=== PATIENT | male | born 1985 | race Caucasian/White ===

== ENCOUNTER 2016-09-24 11:50 | Emergency (ER) | payer OTHER, BC ==
[~2016-09-24] VITALS: Ht 182.9 cm; Wt 99.6 kg
[~2016-09-24 11:50] MED LIST: SERT-234 PO
[2016-09-24 12:03] VITALS: TEMP 37.7; Ht 182.9 cm; Wt 99.6 kg
[2016-09-24 12:27] LABS: BASO % 0.2 %; BASO ABS # 0.03 K/uL (0-0.2); COMPLETE YES; EOS % 0.1 %; HEMATOCRIT 45.2 % (42-52); IG% 0.3 %; LYMPH % 11.1 %; LYMPH ABS # 1.63 K/uL (1.2-3.4); MEAN CELL VOLUME 88.1 fL (80-100); MEAN CORPUSCULAR HEMOGLOBIN 32.4 pg (25-34); MEAN CORPUSCULAR HGB CONC 36.7 g/dl (32-36); MEAN PLATELET VOLUME 10.6 fL (7.4-10.4); MONO % 5.7 %; NEUT % 82.6 %; PLATELET COUNT 187 K/uL (130-400); RED BLOOD COUNT 5.13 M/uL (4.7-6.1); WHITE BLOOD COUNT 14.68 K/uL (4.8-10.8)
--- NOTE | 2016-09-24 12:32 | DIAGNOSTIC IMAGING REPORT ---
CHEST ONE VIEW PORTABLE CLINICAL HISTORY: Fever, sepsis. Shortness of breath. COMPARISON STUDY: Chest radiograph June 08, 2014. FINDINGS: Lung volumes are normal. There is no pneumothorax or pleural effusion. Cardiac size is normal. Mediastinal contours are normal. There is no evidence of pulmonary edema. IMPRESSION: No acute cardiopulmonary findings. Electronically signed by: Raul Khan M.D. 09/24/2016 12:30 PM Dictated Date/Time: 09/24/2016 12:29 PM
[2016-09-24 12:45] LABS: ALT/SGPT 53 U/L (12-78); AST/SGOT 24 U/L (15-37); BLOOD UREA NITROGEN 16 mg/dl (7-18); BUN/CREATININE RATIO 14.5 (10-20); CALCIUM 9.2 mg/dl (8.5-10.1); CARBON DIOXIDE 28 mmol/L (21-32); CHLORIDE 105 mmol/L (98-107); GLUCOSE 94 mg/dl (70-99); POTASSIUM 3.9 mmol/L (3.5-5.1); SODIUM 139 mmol/L (136-145)
[2016-09-24 12:50] LABS: ALKALINE PHOSPHATASE 74 U/L (45-117)
[2016-09-24 13:22] VITALS: O2SAT 94
[2016-09-24] MEDS ORDERED: ZNTT/150 PO (13:53)
--- NOTE | 2016-09-24 13:54 | EMERGENCY ROOM VISIT NOTE ---
History Report prepared by Jocelyn: Lazara Jacobo Under the Supervision of: Dr. Romain Rossi D.O. First contact with patient: 12:07 Chief Complaint: CHEST PAIN Stated Complaint: CP, SOB, DIZZY Nursing Triage Summary: CP with SOB. Almost like a soreness in the middle of chest, feels like a knot. History of Present Illness The patient is a 31 year old male who presents to the Emergency Room with complaints of persistent chest pain that began prior to arrival. He currently rates his discomfort as a 6/10 in severity. The patient states that he feels that he has a lump in his chest and states that he feels that he has a blockage. He states that his pain is worsened with deep breathing, eating, or drinking. The patient states that he notices pain when he swallows. He additionally associates shortness of breath with his symptoms today. The patient states that he tried taking Zantac last night without relief of his symptoms. The patient denies any abdominal pain. He denies any tobacco use or alcohol use. The patient states that he has a history of PTSD. Source of History: patient Onset: prior to arrival Position: chest Symptom Intensity: 6/10 Quality: other (lump, blockage) Timing: other (persistent) Modifying Factors (Worsening): eating, drinking, breathing (deep) Associated Symptoms: + SOB Note: Associated Symptoms: pain with swallowing Review of Systems See HPI for pertinent positives & negatives. A total of 10 systems reviewed and were otherwise negative. Past Medical & Surgical Medical Problems: (1) Anxiety (2) Chest pain of uncertain etiology (3) Chest pain of uncertain etiology (4) Chronic post-traumatic stress disorder (5) Hearing loss Surgical Problems: (1) [place] teeth extracted Family History Patient reports no known family medical history. Social History Smoking Status: Never Smoker Drug Use: none Marital Status: single Occupation Status: employed Current/Historical Medications Scheduled Ranitidine (Zantac), 1 TAB PO BID Sertraline (Zoloft), 100 MG PO QAM Allergies Coded Allergies: Iodinated Diagnostic Agents (Verified Allergy, Severe, THROAT SWELLING, ) Physical Exam Vital Signs Date Time Temp Pulse Resp B/P Pulse Ox O2 Delivery O2 Flow Rate FiO2 09/24/16 13:22 94 Room Air 09/24/16 12:53 78 09/24/16 12:45 75 14 114/58 94 Room Air 09/24/16 12:03 37.7 80 16 131/61 94 Room Air Physical Exam CONSTITUTIONAL/VITAL SIGNS: Reviewed / noted above. GENERAL: Non-toxic in appearance. INTEGUMENTARY: Warm, dry, and [place]. HEAD: Normocephalic. EYES: without scleral icterus or trauma. ENT/OROPHARYNX: clear and moist. LYMPHADENOPATHY/NECK: Is supple without lymphadenopathy or meningismus. RESPIRATORY: Lungs clear and equal. CARDIOVASCULAR: Regular rate and rhythm. GI/ABDOMEN: Soft and nontender. No organomegaly or pulsatile mass. No rebound or guarding. Normal bowel sounds. EXTREMITIES: Warm and well perfused. BACK: No CVA tenderness. NEUROLOGICAL: Intact without focal deficits. PSYCHIATRIC: normal affect. MUSCULOSKELETAL: Normally developed with good muscle tone. Medical Decision & Procedures ER Provider Diagnostic Interpretation: X ray results and stated below per my interpretation and radiology interpretation. CHEST ONE VIEW PORTABLE CLINICAL HISTORY: Fever, sepsis. Shortness of breath. COMPARISON STUDY: Chest radiograph June 08, 2014. FINDINGS: Lung volumes are normal. There is no pneumothorax or pleural effusion. Cardiac size is normal. Mediastinal contours are normal. There is no evidence of pulmonary edema. IMPRESSION: No acute cardiopulmonary findings. Electronically signed by: Raul Khan M.D. 09/24/2016 12:30 PM Dictated Date/Time: 09/24/2016 12:29 PM Laboratory Results 09/24/16 12:17 Red Blood Count 5.13, Mean Corpuscular Volume 88.1, Mean Corpuscular Hemoglobin 32.4, Mean Corpuscular Hemoglobin Concent 36.7, Mean Platelet Volume 10.6, Neutrophils (%) (Auto) 82.6, Lymphocytes (%) (Auto) 11.1, Monocytes (%) (Auto) 5.7, Eosinophils (%) (Auto) 0.1, Basophils (%) (Auto) 0.2, Neutrophils # (Auto) 12.13, Lymphocytes # (Auto) 1.63, Monocytes # (Auto) 0.83, Eosinophils # (Auto) 0.02, Basophils # (Auto) 0.03 09/24/16 12:17 Test 09/24/16 12:17 White Blood Count 14.68 K/uL (4.8-10.8) Red Blood Count 5.13 M/uL (4.7-6.1) Hemoglobin 16.6 g/dL (14.0-18.0) Hematocrit 45.2 % (42-52) Mean Corpuscular Volume 88.1 fL (80-100) Mean Corpuscular Hemoglobin 32.4 pg (25-34) Mean Corpuscular Hemoglobin Concent 36.7 g/dl (32-36) Platelet Count 187 K/uL (130-400) Mean Platelet Volume 10.6 fL (7.4-10.4) Neutrophils (%) (Auto) 82.6 % Lymphocytes (%) (Auto) 11.1 % Monocytes (%) (Auto) 5.7 % Eosinophils (%) (Auto) 0.1 % Basophils (%) (Auto) 0.2 % Neutrophils # (Auto) 12.13 K/uL (1.4-6.5) Lymphocytes # (Auto) 1.63 K/uL (1.2-3.4) Monocytes # (Auto) 0.83 K/uL (0.11-0.59) Eosinophils # (Auto) 0.02 K/uL (0-0.5) Basophils # (Auto) 0.03 K/uL (0-0.2) RDW Standard Deviation 38.7 fL (36.4-46.3) RDW Coefficient of Variation 12.0 % (11.5-14.5) Immature Granulocyte % (Auto) 0.3 % Immature Granulocyte # (Auto) 0.04 K/uL (0.00-0.02) D-Dimer < 190 ug/L FEU (0-500) Anion Gap 6.0 mmol/L (3-11) Est Creatinine Clear Calc Drug Dose 118.9 ml/min Estimated GFR () 103.1 Estimated GFR (Non- 89.0 BUN/Creatinine Ratio 14.5 (10-20) Calcium Level 9.2 mg/dl (8.5-10.1) Total Bilirubin 0.7 mg/dl (0.2-1) Direct Bilirubin 0.2 mg/dl (0-0.2) Aspartate Amino Transf (AST/SGOT) 24 U/L (15-37) Alanine Aminotransferase (ALT/SGPT) 53 U/L (12-78) Alkaline Phosphatase 74 U/L (45-117) Troponin I < 0.015 ng/ml (0-0.045) Total Protein 8.1 gm/dl (6.4-8.2) Albumin 4.2 gm/dl (3.4-5.0) Lipase 168 U/L (73-393) Laboratory results as stated above per my review. ECG Indication: chest pain Rate (beats per minute): 77 Rhythm: normal sinus Findings: no acute ischemic change, no ectopy ED Course 1209: Previous medical records were reviewed. The patient was evaluated in room C4. A complete history and physical examination was performed. 1355: I reevaluated the patient and he is doing well. I discussed the exam findings with him and I discussed the treatment plan. He verbalized complete understanding and agreement. He is ready to go home. Medical Decision the differential was considered includes acute myocardial infarction, acute coronary syndrome, myocarditis, pericarditis, pericardial effusions /tamponade, esophageal perforation, thoracic aortic dissection, pulmonary embolism, pneumonia, pneumothorax, pancreatitis, shingles, acute cholecystitis, perforated abdominal viscus. This is a 31-year-old male who presents to the ED with a chief complaint of chest pain. The patient reports having a lump in his chest. He states that sometimes it seems to be worse with swallowing as well as breathing. His physical exam or vital signs are normal. EKG shows a normal sinus rhythm. White blood cell count was 14.6. D-dimer is negative. Troponin is negative. CMP is normal. Lipase is negative. Chest x-ray did not show acute disease. The patient was told results the test. He is felt to be stable for discharge and outpatient follow-up. He was discharged on Zantac. Impression Primary Impression: Precordial chest pain Scribe Attestation The scribe's documentation has been prepared under my direction and personally reviewed by me in its entirety. I confirm that the note above accurately reflects all work, treatment, procedures, and medical decision making performed by me. Departure Information Dispostion Home / Self-Care Prescriptions Ranitidine (Zantac) 150 Mg Tab 1 TAB PO BID for 30 Days, #60 TAB 0 Refills Prov: Romain Rossi D.O. 09/24/16 Referrals No Doctor, Assigned (PCP) Forms HOME CARE DOCUMENTATION FORM, IMPORTANT VISIT INFORMATION Patient Instructions My [facility] Additional Instructions Try Tums for your symptoms. Zantac as prescribed. Follow-up with your doctor for recheck. Call for appointment today or tomorrow.
[2016-09-24 14:05] VITALS: BP 108/65; PULSE 75; O2SAT 95
== END 2016-09-24 14:14 | disposition home or self-care (01) ==
LOC: C.EDB 11:51 → C.EDC 14:14
DX: R07.2 Precordial pain (principal); J45.909 Unspecified asthma, uncomplicated

== ENCOUNTER 2017-08-05 19:09 | Inpatient (IN) | payer OTHER, BC ==
[~2017-08-05] VITALS: Ht 182.9 cm; Wt 95.5 kg
[~2017-08-05 19:09] MED LIST changes: +RANI150T85 PO
--- NOTE | 2017-08-05 20:51 | EMERGENCY ROOM VISIT NOTE ---
History Report prepared by Jocelyn: Flory Fiore Under the Supervision of: Dr. Dheeraj Floyd D.O. First contact with patient: 19:12 Chief Complaint: MENTAL HEALTH EVALUATION Stated Complaint: MHID History of Present Illness The patient is a 32 year old male who presents to the Emergency Room with complaints of persistent suicidal ideation starting around 1600 today. The patient presents to the ED by EMS after trying to hang himself. The patient has a history of PTSD and bipolar. He is currently not on any medications. The patient reports that he had a difficult day today which caused him to start feeling suicidal. He was feeling fine this morning. His coworker today told him that he was messing up and needed to get his act together. He told his about what had happened at work and she "got on his case" about it. He then lost control and started yelling. He reports that he felt useless. He went upstairs to try and calm down. He put a belt around his neck and laid there for a couple minutes. He admits to suicidal ideation at that time. His called crisis. He has had similar problems in the past and was hospitalized in 2013. He has been on sertraline, Abilify, prazosin, and trazodone in the past. He has tried hanging himself in the past. He currently follows with a therapist. He does have thoughts of hurting himself whenever things spiral out of control. He thinks his tetanus is up to date. He denies any drug or tobacco use. He uses alcohol rarely. He denies any previous surgery or other medical problems. He denies any hoarseness in his voice, cough, or trouble swallowing. Source of History: patient Onset: 1600 today Position: other (mental health) Quality: other (suicidal ideation) Timing: other (persistent) Modifying Factors (Worsening): other (stress) Associated Symptoms: No cough Note: Pt denies hoarse voice, trouble swallowing. Review of Systems See HPI for pertinent positives & negatives. A total of 10 systems reviewed and were otherwise negative. Past Medical & Surgical Medical Problems: (1) Anxiety (2) Chest pain of uncertain etiology (3) Chest pain of uncertain etiology (4) Chronic post-traumatic stress disorder (5) Hearing loss Surgical Problems: (1) [place] teeth extracted Family History Cancer Social History Smoking Status: Never Smoker Drug Use: none Marital Status: Housing Status: lives with family Occupation Status: employed Current/Historical Medications No Active Prescriptions or Reported Meds Allergies Coded Allergies: Iodinated Diagnostic Agents (Verified Allergy, Severe, THROAT SWELLING, ) Physical Exam Vital Signs Date Time Temp Pulse Resp B/P (MAP) Pulse Ox O2 Delivery O2 Flow Rate FiO2 08/05/17 19:43 36.8 74 20 117/63 98 Room Air Physical Exam GENERAL: Patient is awake, alert, and in no acute distress. Patient is resting comfortably and showing no signs of anxiety EYES: The conjunctivae are clear. The pupils are round and reactive. EARS, NOSE, MOUTH AND THROAT: The nose is without any evidence of any deformity. Mucous membranes are moist tongue is midline NECK: The neck is nontender and supple. RESPIRATORY: Normal respiratory effort is noted there is no evidence of wheezing rhonchi or rales CARDIOVASCULAR: Regular rate and rhythm noted there no murmurs rubs or gallops normal S1 normal S2 GASTROINTESTINAL: The abdomen is soft. Bowel sounds are present in all quadrants. Abdomen is nontender MUSCULOSKELETAL/EXTREMITIES: There is no evidence of gross deformity full range of motion is noted in the hips and shoulders SKIN: There is no obvious evidence of any rash. There are no petechiae, pallor or cyanosis noted. NEUROLOGIC: Patient is awake alert and oriented x3 strength is symmetric patellar reflexes are 2+ bilaterally PSYCH: Affect was flat. Patient makes good eye contact. Currently admitting to suicidal ideation and recounts the episode of attempted hanging. Medical Decision & Procedures Laboratory Results 08/05/17 20:08 Red Blood Count 5.22, Mean Corpuscular Volume 88.5, Mean Corpuscular Hemoglobin 32.6, Mean Corpuscular Hemoglobin Concent 36.8, Mean Platelet Volume 11.4, Neutrophils (%) (Auto) 53.9, Lymphocytes (%) (Auto) 36.2, Monocytes (%) (Auto) 7.0, Eosinophils (%) (Auto) 2.3, Basophils (%) (Auto) 0.3, Neutrophils # (Auto) 3.78, Lymphocytes # (Auto) 2.54, Monocytes # (Auto) 0.49, Eosinophils # (Auto) 0.16, Basophils # (Auto) 0.02 08/05/17 20:08 Test 08/05/17 19:35 08/05/17 20:08 Urine Color YELLOW Urine Appearance CLEAR (CLEAR) Urine pH 6.0 (4.5-7.5) Urine Specific [place] 1.020 (1.000-1.030) Urine Protein NEG (NEG) Urine Glucose (UA) NEG (NEG) Urine Ketones NEG (NEG) Urine Occult Blood NEG (NEG) Urine Nitrite NEG (NEG) Urine Bilirubin NEG (NEG) Urine Urobilinogen NEG (NEG) Urine Leukocyte Esterase NEG (NEG) Urine Opiates Screen NEG (NEG) Urine Methadone, Qualitative NEG (NEG) Urine Barbiturates NEG (NEG) Urine Phencyclidine (PCP) Level NEG (NEG) Ur Amphetamine/Methamphetamine NEG (NEG) MDMA (Ecstasy) Screen NEG (NEG) Urine Benzodiazepines Screen NEG (NEG) Urine Cocaine Metabolite NEG (NEG) Urine Marijuana (THC) NEG (NEG) White Blood Count 7.01 K/uL (4.8-10.8) Red Blood Count 5.22 M/uL (4.7-6.1) Hemoglobin 17.0 g/dL (14.0-18.0) Hematocrit 46.2 % (42-52) Mean Corpuscular Volume 88.5 fL (80-100) Mean Corpuscular Hemoglobin 32.6 pg (25-34) Mean Corpuscular Hemoglobin Concent 36.8 g/dl (32-36) Platelet Count 180 K/uL (130-400) Mean Platelet Volume 11.4 fL (7.4-10.4) Neutrophils (%) (Auto) 53.9 % Lymphocytes (%) (Auto) 36.2 % Monocytes (%) (Auto) 7.0 % Eosinophils (%) (Auto) 2.3 % Basophils (%) (Auto) 0.3 % Neutrophils # (Auto) 3.78 K/uL (1.4-6.5) Lymphocytes # (Auto) 2.54 K/uL (1.2-3.4) Monocytes # (Auto) 0.49 K/uL (0.11-0.59) Eosinophils # (Auto) 0.16 K/uL (0-0.5) Basophils # (Auto) 0.02 K/uL (0-0.2) RDW Standard Deviation 38.1 fL (36.4-46.3) RDW Coefficient of Variation 12.0 % (11.5-14.5) Immature Granulocyte % (Auto) 0.3 % Immature Granulocyte # (Auto) 0.02 K/uL (0.00-0.02) Anion Gap 5.0 mmol/L (3-11) Est Creatinine Clear Calc Drug Dose 110.0 ml/min Estimated GFR () 101.3 Estimated GFR (Non- 87.4 BUN/Creatinine Ratio 19.4 (10-20) Calcium Level 9.1 mg/dl (8.5-10.1) Total Bilirubin 0.5 mg/dl (0.2-1) Direct Bilirubin 0.1 mg/dl (0-0.2) Aspartate Amino Transf (AST/SGOT) 22 U/L (15-37) Alanine Aminotransferase (ALT/SGPT) 42 U/L (12-78) Alkaline Phosphatase 78 U/L (45-117) Total Protein 8.1 gm/dl (6.4-8.2) Albumin 4.1 gm/dl (3.4-5.0) Thyroid Stimulating Hormone (TSH) 1.300 uIu/ml (0.300-4.500) Salicylates Level < 1.7 mg/dl (2.8-20) Acetaminophen Level < 2 ug/ml (10-30) Ethyl Alcohol mg/dL < 3.0 mg/dl (0-3) Laboratory results per my review. ED Course 1918: The patient was evaluated in room A7. A complete history and physical examination were performed. 2124: The patient has been evaluated by the psychiatric case investigator. He is being referred to [address] [place] [address]. 2314: I reevaluated the patient. He is resting comfortably. Medical Decision Prior records/ancillary studies reviewed. Triage Nursing notes reviewed. The patient's history was concerning for possible psychiatric disturbance. Differential diagnosis: Etiologies such as mood disorder, infection, hypoglycemia, electrolyte abnormalities, cardiac sources, intracerebral event, toxicologic, neurologic, as well as others were entertained. The patient is a 32-year-old male who presented to the emergency department for an evaluation after a suicidal gesture. The patient gives a history of feeling well this morning but then having problems at work and then problem with his significant other. These appear to have culminated in the patient having a very severe suicidal ideation followed by a gesture to hang himself. [facility] The patient was evaluated by the inspector soldering and was felt to be a good candidate for ER evaluation given the patient's current symptoms. The patient was medically cleared in the emergency department. I discussed the patient's laboratory studies with him. He was feeling much better but I do feel the patient is at high risk given his history. He was evaluated by the emergency department health case investigator and then evaluated by the delegate from [facility]. He was felt to be a good candidate for inpatient management. The patient was agreeable to this. I did sign the 201. Medication Reconcilliation Current Medication List: was personally reviewed by me Blood Pressure Screening Patient's blood pressure: Normal blood pressure Blood pressure disposition: Did not require urgent referral Impression Primary Impression: Depression Additional Impression: Suicide gesture Scribe Attestation The scribe's documentation has been prepared under my direction and personally reviewed by me in its entirety. I confirm that the note above accurately reflects all work, treatment, procedures, and medical decision making performed by me. Departure Information Dispostion Mental Health Acute Care Prescriptions No Active Prescriptions or Reported Meds Referrals No Doctor, Assigned (PCP) Patient Instructions My [facility] Problem Qualifiers Primary Impression: Depression Depression Type: unspecified Qualified Codes: F32.9 - Major depressive disorder, single episode, unspecified Additional Impression: Suicide gesture Encounter type: initial encounter Qualified Codes: X83.8XXA - Intentional self-harm by other specified means, initial encounter
[2017-08-05 21:08] LABS: BASO % 0.3 %; BASO ABS # 0.02 K/uL (0-0.2); EOS % 2.3 %; EOS ABS # 0.16 K/uL (0-0.5); HEMATOCRIT 46.2 % (42-52); IG# 0.02 K/uL (0.00-0.02); LYMPH % 36.2 %; LYMPH ABS # 2.54 K/uL (1.2-3.4); MEAN CELL VOLUME 88.5 fL (80-100); MEAN CORPUSCULAR HEMOGLOBIN 32.6 pg (25-34); MEAN CORPUSCULAR HGB CONC 36.8 g/dl (32-36); MEAN PLATELET VOLUME 11.4 fL (7.4-10.4); MONO ABS # 0.49 K/uL (0.11-0.59); NEUT % 53.9 %; NEUT ABS # 3.78 K/uL (1.4-6.5); PLATELET COUNT 180 K/uL (130-400); RED CELL DISTRIBUTION WIDTH SD 38.1 fL (36.4-46.3); WHITE BLOOD COUNT 7.01 K/uL (4.8-10.8)
[2017-08-05 21:13] LABS: ALBUMIN 4.1 gm/dl (3.4-5.0); CALCIUM 9.1 mg/dl (8.5-10.1); CREATININE 1.11 mg/dl (0.60-1.40); POTASSIUM 3.5 mmol/L (3.5-5.1)
[2017-08-05 21:15] LABS: TOTAL PROTEIN 8.1 gm/dl (6.4-8.2)
[2017-08-06] MEDS ORDERED: NURSING VERBAL MED ORDER ONE
[2017-08-06 00:16] VITALS: O2SAT 99
[2017-08-06] MEDS ORDERED: MAGNESIUM HYDROXIDE SUSP 30 ML UDC PO PRN (00:45)
[2017-08-06] MEDS ORDERED: ACETAMINOPHEN 325 MG TAB PO PRN (00:45)
[2017-08-06] MEDS ORDERED: hydrOXYzine HCL 25 MG TAB PO PRN ×2 (00:45)
[2017-08-06] MEDS ORDERED: BISMUTH SUBSALICYLATE PER ML OMNICELL CHARGE PO PRN (00:45)
[2017-08-06] MEDS ORDERED: SODIUM CHLORIDE 0.65% NA SOLN 45 ML (OCEAN) PRN (00:45)
[2017-08-06] MEDS ORDERED: ALUMINUM/MAGNESIUM SUSP 30 ML UDC PO PRN (00:45)
[2017-08-06 00:55] VITALS: BP 127/78; PULSE 73; TEMP 36.5; Ht 182.9 cm; Wt 95.5 kg
[2017-08-06 07:04] VITALS: BP_SYST 119; BP_SYST 124; BP_DIAS 73; BP_DIAS 78; PULSE 54; PULSE 56; TEMP 36.3
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
[2017-08-06] MEDS: OXCARBAZEPINE 150 MG TAB PO SCH (22:00)
[2017-08-07 06:53] VITALS: BP_SYST 107; BP_SYST 131; BP_DIAS 68; BP_DIAS 73; PULSE 56; PULSE 80; TEMP 36.6
[2017-08-07] MEDS: OXCARBAZEPINE 150 MG TAB PO SCH ×2 (08:34→21:39)
--- NOTE | 2017-08-07 12:58 | Psychiatric Progress Notes ---
Progress Note Date of Service Aug 07, 2017. Interval History Frank Sigala is a 32-year-old male admitted on Aug 05, 2017 at 23:51 who currently lives in [place], with his and two children. Frank Sigala was admitted on a 201 voluntary agreement. Patient is admitted from home. The patient was brought to the ED by his family. Information provided by the patient is considered to be reliable. Chief Complaint "Well, honestly, I'm a little irritated with my length of stay". Subjective Patient was seen & assessed interval progress reviewed with Treatment Team. Staff reports the patient had a family meeting with his yesterday in which they discussed safety planning and his progress. states her has been doing very well recently. Pt has been attending and participating in groups regularly. Pt was seen today to assess progress since admission. Pt states he is a little irritated as he was told he could potentially go home today, but his length of stay was reported to be 2-3 days. We discussed the multiple factors that go into determining length of stay, as well as the seriousness of his suicide attempt. Pt was understanding of these things. He states he plans to talk with his about her progress with setting up aftercare through the [facility]. Pt denies ongoing SI since admission and feels that his attempt was due to "the perfect storm" of events. He feels it was impulsive and now regrets it. We discussed the benefit of being here and having the opportunity to evaluate his safety plan and coping skills in order to prevent this in the future. Pt was agreeable to working on these things. He denies other needs or concerns today. Review of Systems Psych: denies symptoms other than stated above Constitutional: denied Cardiovascular: denied GI: denied Neurologic: denied Remainder of 10 body systems also reviewed and denied other than noted above. Sleep Information Total Hours of Sleep: 7.00 Meal Information Percent of Breakfast Consumed: 100 Percent of Lunch Consumed: 100 Percent of Dinner Consumed: 100 Mental Status Exam During interview pt is: alert and oriented, cooperative (very pleasant) Appearance: appropriately dressed, appropriately groomed Eye contact is: good Motor behavior is: steady gait & station, no abnormal motor movements Speech: normal in rate, rhythm & volume Affect: anxious Mood is: anxious (about length of stay) Thought process: goal directed, linear, logical, clear, coherent Thought content: reality based without delusions Suicidal thought are: denied Homicidal thoughts are: denied Hallucinations: denies auditory, denies visual Cognition: memory grossly intact Intelligence estimated to be: consistent with level of education Insight: fair Judgement: fair (History of 2 impulsive suicide attempts, but able to evaluate in hindsight.) Patient has a history of 1 previous suicide attempt or gesture in 2009 after being discharged from the under less than normal circumstances. He denies any other history of intentional self-injurious behaviors, apart from the that led to his current admission. He also reports that he has never been violent, has no homicidal thoughts, and has no history of intentionally causing physical harm to himself or others Impression Pt reports he has been tolerating oxcarbazepine 300mg BID without side effects. Pt is eager for discharge, but is understanding of need to ensure safety by having aftercare in place and making sure safety plan is reviewed. Pt was encouraged to complete the safety plan in his patient manual, despite reviewing the topic in his family meeting with his . Pt was encouraged to continue to focus on his coping skills as aftercare is set up. Received report that the patient's aftercare has been arranged [facility] and he is scheduled for appointments with psychiatric and therapy on 08/10 and 08/11. Would seem appropriate for discharge on Thursday, 08/09 in order to attend these appointments. At this time still requires inpatient mental health treatment due to the seriousness of his suicide attempt and need for processing of safety plan and coping skills to prevent this in the future. Remains at risk of harm to self if discharged prematurely. Plan (1) Bipolar II disorder with or without full interepisode recovery 08/06 - The patient initially tells me today that he thinks that he has been doing well since discontinuing his psychiatric medications, intended to target his bipolar disorder. He stopped his medications and December 2016. Although he has not experienced a full depression, nor has he experienced prominent hypomanic symptoms, he is aware of mood irritability, difficulty regulating his temper, and short-lived periods of feeling "down." Feels that antidepressant medications interfere with his ability to fully experience emotions, and he is reluctant to resume an antidepressant medication. However, he will consider taking a mood stabilizer, such as oxcarbazepine. He is not currently suicidal or homicidal. No evidence of any psychotic features. I provided teaching regarding his illness, the need for not only symptomatic treatment, but also for prophylaxis. I also provided teaching regarding medications, side effects, and indications. -Again oxcarbazepine 300 mg twice daily. -Family meeting planned for this afternoon. -The patient will be working on coping strategies and a safety plan. 08/07 - Continue oxcarbazepine 300mg BID, denies side effects - Encouraged work on safety plan in patient manual in preparation for discharge in the next few days. - [facility] arranged [facility] the [facility] on 08/10 and 08/11. (2) Suicide gesture 08/06 -The patient acknowledges that he did not have suicidal intent in association with his fastening a belt around his neck. He says that the dog never cut off his airway, and he notes that he was also present with came to check on him, given the statement he had made to her immediately prior to the event. Today, he tells me he is embarrassed and regretful. He already has developed a safety plan, at least in part, that would involve him contacting his therapist or going to the emergency room with suicidal thoughts with a plan recur. He also recognizes that he is to get back to treatment with a psychiatrist and will need psychiatric medications. Today, he is reporting that he does not have any suicidal or homicidal thoughts. 08/07 - Denies SI today, stating suicide attempt was impulsive and he regrets his actions Discharge / Aftercare Planning Primary Care Physician: Name: [facility] Appointment Notes: [address] [place] [address] [place] [id number] Psychiatrist: Name: [facility] - Dr. Jung Date of Appointment: Aug 10, 2017 Time of Appointment: 1:00 p.m. Appointment Notes: [address] [facility] [place] [id number] Therapist: Name: [facility] - Ziyad Mueller Date of Appointment: Aug 11, 2017 Time of Appointment: 2:00 pm Appointment Notes: [address] [facility] [place] [id number] Tax Compliance Representative: Name: None Visit Code E&M Code: 70254 Inventory Assets Strengths: Hard-working. Motivated, supportive family. Intelligent. Career oriented. Needs: Difficulty regulating his mood. History of trauma. Risk Factors Assessment Male: Yes : Yes /single/: No Higher / Fall in social status: No Health problems: No Mental Health Diagnoses: Yes Substance use disorders: No Previous attempt: Yes Previous attempt;highly lethal: No Previous attempt; planned: No Previous attempt; didn't tell: Yes Family history of suicide: No Previous psychiatric stay: Yes Hopelessness: No Smoker: No Protective Factors Assessment Judaism beliefs: Yes : Yes Responsible for young children: Yes Employed: Yes Stable relationships: Yes Supportive family: Yes Good rapport with provider: Yes Absence of risk factors above: No Data Vital Signs Last 24 Hrs: Date Time Temp Pulse Resp B/P (MAP) Pulse Ox O2 Delivery O2 Flow Rate FiO2 08/07/17 06:53 36.6 56 16 107/68 80 131/73 Meds Administered Last 24 Hrs: Meds Administered (Past 24Hrs) Medications (Trade) Dose Ordered Sig/Taylor Route Start Time Stop Time Status Last Admin Dose Admin Oxcarbazepine (Trileptal Tab) 300 mg BID PO 08/06/17 22:00 09/05/17 21:59 08/07/17 08:34 300 MG
[2017-08-08 06:28] VITALS: BP_SYST 107; BP_SYST 108; BP_DIAS 62; BP_DIAS 69; PULSE 64; PULSE 97; TEMP 36.4
[2017-08-08] MEDS: OXCARBAZEPINE 150 MG TAB PO SCH ×2 (07:31→21:23)
--- NOTE | 2017-08-08 09:50 | Psychiatric Progress Notes ---
Progress Note Date of Service Aug 08, 2017. Interval History Frank Sigala is a 32-year-old male admitted on Aug 05, 2017 at 23:51 who currently lives in [place], with his and two children. Frank Sigala was admitted on a 201 voluntary agreement. Patient is admitted from home. The patient was brought to the ED by his family. Information provided by the patient is considered to be reliable. Chief Complaint "I am feeling better". Subjective Patient was seen & assessed interval progress reviewed with Nursing as well as LORETTA Jewell He reports he has completed his safety plan, talked to his and has had communication with boss. He is feeling hopeful for return to school in the [place], and to work this week. He is ageeable to continue the trileptal denying side effects after 2.5 days of dosing. Provider expressed desire to continue observation of patient to include behavior , working on honing safety plan (he completed but there are too many activities to possible do all of them) with goal to pick Top 3 things to mentally rehearse for coping daily, and then Top 3 acute actions if having distress or SI, then knowing if this is not helping he can get out the paper and work through the list to assist with reduction of distress and also serve as some distraction. He agrees to this behavioral goal today. He is interested in discharge but agrees to stay 1 additional day to accomplish 3 days of monitoring on new meds and the behavioral goals above. He has previously sold his guns and denies weapons in the home. He reports intact Sleep, fair energy, denies h/h/w, denies SI, and is starting to verbalize options for safety if he again becomes overwhelmed. Encouraged him to consider what "warning feelings, and thoughts and behaviors are" so he can recognize and diffuse things early. He agrees to do so. He denies feeling anxiety, he states his PTSD is worst in May but since the intensive program he has felt improved. [facility] Review of Systems Denies symptoms constitutionally, neurologically, or GI. Psych sx as noted above o/w denies. Sleep Information Total Hours of Sleep: 6.75 Meal Information Percent of Breakfast Consumed: 100 Percent of Lunch Consumed: 100 Percent of Dinner Consumed: 100 Mental Status Exam During interview pt is: alert and oriented, cooperative (very pleasant) Appearance: appropriately dressed, appropriately groomed Eye contact is: good Motor behavior is: steady gait & station, no abnormal motor movements Speech: normal in rate, rhythm & volume Affect: mood congruent Mood is: other ("okay") Thought process: goal directed, linear, logical, clear, coherent Thought content: reality based without delusions Suicidal thought are: denied Homicidal thoughts are: denied Hallucinations: denies auditory, denies visual Cognition: memory grossly intact Intelligence estimated to be: consistent with level of education Insight: good Judgement: good Patient has a history of 1 previous suicide attempt or gesture in 2009 after being discharged from the under less than normal circumstances. He denies any other history of intentional self-injurious behaviors, apart from the that led to his current admission. He also reports that he has never been violent, has no homicidal thoughts, and has no history of intentionally causing physical harm to himself or others Impression Pt reports he has been tolerating oxcarbazepine 300mg BID without side effects. Pt is eager for discharge, but is understanding of need to ensure safety by having aftercare in place and making sure safety plan is reviewed and that it is not just a paper but that he has behaviorally and mentally rehearsed his plans for coping as identifying "warning signs" for being overwhelmed culminating in future SI. Pt was encouraged to continue to focus on his coping skills as aftercare is set up. [facility]'s [facility] and he is scheduled for appointments with psychiatric and therapy on 08/10 and 08/11. Would seem appropriate for discharge on Thursday, 08/09 in order to attend these appointments. At this time still requires inpatient mental health treatment due to the seriousness of his suicide attempt and need for processing of safety plan and coping skills to prevent this in the future and assure medications are tolerable prior to discharge. Remains at risk of harm to self if discharged prematurely. Plan (1) Bipolar II disorder with or without full interepisode recovery 08/06 - The patient initially tells me today that he thinks that he has been doing well since discontinuing his psychiatric medications, intended to target his bipolar disorder. He stopped his medications and December 2016. Although he has not experienced a full depression, nor has he experienced prominent hypomanic symptoms, he is aware of mood irritability, difficulty regulating his temper, and short-lived periods of feeling "down." Feels that antidepressant medications interfere with his ability to fully experience emotions, and he is reluctant to resume an antidepressant medication. However, he will consider taking a mood stabilizer, such as oxcarbazepine. He is not currently suicidal or homicidal. No evidence of any psychotic features. I provided teaching regarding his illness, the need for not only symptomatic treatment, but also for prophylaxis. I also provided teaching regarding medications, side effects, and indications. -Again oxcarbazepine 300 mg twice daily. -Family meeting planned for this afternoon. -The patient will be working on coping strategies and a safety plan. 08/07 and 08/08 - Continue oxcarbazepine 300mg BID, denies side effects and he is willing to continue medications and sees the rationale for this recommendation - Encouraged work on safety plan in patient manual in preparation for discharge on 08/09, specifically revisiting safety plan for top 3 activities that he will be incorporating for stress releif, and top three activities to do when he feels saturated - [facility]care arranged at the [facility] on 08/10 and 08/11. (2) Suicide gesture 08/06 -The patient acknowledges that he did not have suicidal intent in association with his fastening a belt around his neck. He says that the dog never cut off his airway, and he notes that he was also present with came to check on him, given the statement he had made to her immediately prior to the event. Today, he tells me he is embarrassed and regretful. He already has developed a safety plan, at least in part, that would involve him contacting his therapist or going to the emergency room with suicidal thoughts with a plan recur. He also recognizes that he is to get back to treatment with a psychiatrist and will need psychiatric medications. Today, he is reporting that he does not have any suicidal or homicidal thoughts. 08/07 and 08/08 - Denies SI today, stating suicide attempt was impulsive and he regrets his actions Discharge / Aftercare Planning Primary Care Physician: Name: [facility] Appointment Notes: [id number] [facility] [place] [address] Psychiatrist: Name: [facility] - Dr. Jung Date of Appointment: Aug 10, 2017 Time of Appointment: 1:00 p.m. Appointment Notes: [address] [facility] [place] [address] Therapist: Name: [facility] - Ziyad Mueller Date of Appointment: Aug 11, 2017 Time of Appointment: 2:00 pm Appointment Notes: [address] [facility] [place] [id number] Track Coach: Name: None Visit Code E&M Code: 33691 Inventory Assets Strengths: Hard-working. Motivated, supportive family. Intelligent. Career oriented. Needs: Difficulty regulating his mood. History of trauma. Risk Factors Assessment Male: Yes : Yes /single/: No Higher / Fall in social status: No Health problems: No Mental Health Diagnoses: Yes Substance use disorders: No Previous attempt: Yes Previous attempt;highly lethal: No Previous attempt; planned: No Previous attempt; didn't tell: Yes Family history of suicide: No Previous psychiatric stay: Yes Hopelessness: No Smoker: No Protective Factors Assessment Latter-Day beliefs: Yes : Yes Responsible for young children: Yes Employed: Yes Stable relationships: Yes Supportive family: Yes Good rapport with provider: Yes Absence of risk factors above: No Data Vital Signs Last 24 Hrs: Date Time Temp Pulse Resp B/P (MAP) Pulse Ox O2 Delivery O2 Flow Rate FiO2 08/08/17 06:28 36.4 64 18 108/69 97 107/62 Meds Administered Last 24 Hrs: Meds Administered (Past 24Hrs) Medications (Trade) Dose Ordered Sig/Taylor Route Start Time Stop Time Status Last Admin Dose Admin Oxcarbazepine (Trileptal Tab) 300 mg BID PO 08/06/17 22:00 09/05/17 21:59 08/08/17 07:31 300 MG
[2017-08-09 06:36] VITALS: BP_SYST 103; BP_SYST 116; BP_DIAS 66; BP_DIAS 71; PULSE 82; PULSE 92; TEMP 36.3
[2017-08-09] MEDS: OXCARBAZEPINE 150 MG TAB PO SCH (08:01)
[2017-08-09] MEDS ORDERED: TRL150 PO (09:34)
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
== END 2017-08-09 10:12 | disposition home or self-care (01) | DRG 885 ==
LOC: EDBD 19:09 → C.EDA 19:10 → ENRESERV 23:46 → C.MHU 23:51
PROVIDERS: ADMIT Psychiatry & Neurology Child & Adolescent Psychiatry; ATTEND Psychiatry & Neurology Psychiatry
DX: F31.81 Bipolar II disorder (principal); R45.851 Suicidal ideations; F43.10 Post-traumatic stress disorder, unspecified; Z91.041 Radiographic dye allergy status; Z81.1 Family history of alcohol abuse and dependence; Z81.8 Family history of other mental and behavioral disorders

== ENCOUNTER 2024-09-26 10:54 | Inpatient (IN) ==
[2024-09-26 11:30] LABS: Basophils # (auto) 0.03 K/uL (0.00-0.20); Basophils % (auto) 0.2 %; Eosinophils # (auto) 0.05 K/uL (0.00-0.50); Eosinophils % (auto) 0.3 %; Hematocrit (blood only) 46.9 % (42.0-52.0); Hemoglobin 16.8 g/dl (14.0-18.0); Immature Granulocytes # (auto) 0.08 K/uL (0.01-0.20); Immature Granulocytes % (auto) 0.5 %; Lymphocytes # (auto) 2.06 K/uL (1.20-3.40); Lymphocytes % (auto) 13.8 %; Mean Corpuscular Hemoglobin 31.8 pg (25.0-34.0); Mean Corpuscular Hgb Conc 35.8 g/dL (32.0-36.0); Mean Corpuscular Volume 88.7 fL (80.0-100.0); Mean Platelet Volume 10.8 fL (9.4-12.4); Monocytes # (auto) 1.21 K/uL (0.11-0.59); Monocytes % (auto) 8.1 %; Neutrophils # (auto) 11.49 K/uL (1.40-6.50); Neutrophils % (auto) 77.1 %; Platelet Count 182 K/uL (130-400); RDW Coefficient of Variation 11.7 % (11.5-14.5); RDW Standard Deviation 37.5 fL (36.4-46.3); Red Blood Count 5.29 M/uL (4.70-6.10); White Blood Count 14.92 K/ul (4.8-10.8)
[2024-09-26] MEDS: SODIUM CHLORIDE 0.9% 1,000 ML IV ONE (11:44)
--- NOTE | 2024-09-26 11:50 | Emergency Department Note ---
Impression & Plan Cholecystitis, Upper abdominal pain, Fever ED Provider Note NAME: KVNG COLORADO AGE: 39 SEX: M : 1985 ARRIVES VIA: Walk-In INFORMANT: Patient ED PROVIDER(S): Romario Myers MD CHIEF COMPLAINT: Abdominal pain, fever, cholecystitis PLAN: Disposition: Admit. Suggest acute MEDICAL DECISION MAKING: The patient is a pleasant 39-year-old gentleman with a past medical history of bipolar disorder who presents to the emergency department via walk-in for ongoing abdominal pain, nausea and fever this morning to 101 in the setting of being seen in this emergency department yesterday diagnosed with cholecystitis and had been admitted to the PACU for cholecystectomy. Patient reports he ended up leaving AGAINST MEDICAL ADVICE as he felt the plan to move too quickly and he needed to address work issues and family issues. He reports his pain flare today with fever and he reports he was able to take care of the issues he was needing to address. Patient reports he last had water at 730 this morning and has not had anything to eat since yesterday. On evaluation patient is no acute stress, afebrile stable vital signs. Appears clinically dry. He has mild right upper quadrant tenderness with positive Blanc sign. WBC 14.9 K with neutrophilia but no left shift, nonspecific. H/H and platelets within normal limits. Chemistry without metabolic acidosis. Total bilirubin 1.9 with direct bili 2.4, newly elevated from yesterday. AST is 60, also elevated from yesterday. Alk phos is normal. Procalcitonin is not elevated. UA without convincing evidence of infection. Patient's case was discussed with general surgery on-call Miriam Quintanilla PA-C. Given the patient of the elevated bilirubin recommends admission to hospitalist service for MRCP and possible ERCP, which is available this week at our facility.. Agrees with antibiotics at this time. Patient was ordered for IV Zosyn. Case was discussed with KEL García admitting resident, with MIKEY Valdes-KEL hospitalist who will evaluate the patient for admission. Further management per admitting team. Triage Nursing notes reviewed and agree them. Prior/external medical records reviewed Vital Signs: reviewed Differential diagnosis: Appendicitis, testicular torsion, infections, diverticulitis, UTI, obstruction, mesenteric ischemia, aortic pathology, inflammatory bowel disease, renal colic, PUD, pancreatitis, biliary pathology, hernia, volvulus, constipation, as well as other pathologies. ER treatment provided: See below. Diagnostics interpreted by me: Cardiac Monitoring: An order for continuous cardiac monitoring was placed and demonstrated normal sinus rhythm, 88 bpm, no ectopy. Laboratory studies: See below Imaging studies: See below Consultation(s): Miriam Quintanilla, General surgery KEL Elias admitting resident, with Dr. Lorenz, PS-SC hospitalist. HPI: Per MDM. ROS: See above HPI for pertinent positives & negatives. A total of 10 systems reviewed and were otherwise negative. VITALS:See Below PHYSICAL EXAMINATION: GENERAL: Awake, alert, in no distress HENT: Normocephalic, atraumatic. Oropharynx with dry mucous membranes and otherwise unremarkable. EYES: Normal conjunctiva. Sclera non-icteric. NECK: Supple. No nuchal rigidity. FROM. No JVD. RESPIRATORY: Clear to auscultation. CARDIAC: Regular rate, normal rhythm. Extremities warm and well perfused. Pulses equal. ABDOMEN: Soft, non-distended. Mild right upper quadrant tenderness with positive Blanc sign. No rebound. MUSCULOSKELETAL: Chest examination reveals no tenderness. The back is symmetrical on inspection without obvious abnormality. There is no CVA tenderness to palpation. No joint edema. LOWER EXTREMITIES: Calves are equal size bilaterally and non-tender. No edema. No discoloration. NEURO: Normal sensorium. No sensory or motor deficits noted. SKIN: No rash or jaundice noted. Romario Myers MD Past Med/Surg History Problem List (Updated 09/27/24 @ 03:04 by Romario Myers MD) Fever (Acute) Upper abdominal pain (Acute) Total bilirubin, elevated Acute calculous cholecystitis Encounter for pre-operative examination Cholecystitis (Acute) Abdominal pain, epigastric (Acute) Chest pain (Acute) Night sweats Daytime somnolence Snoring Apnea (Chronic) No significant past surgical history Bipolar II disorder with or without full interepisode recovery Left ankle sprain (Acute) Social History Smoking Status: Never smoker Do You Dip or Chew Tobacco: No; Hx Alcohol Use: No Hx Substance Use: No Preferred Language: Moroccan Communication Ability: Effective Nut Grader Required: No Beliefs That Will Affect Care: None Current Living Situation: Spouse Other Information That Helps Us Care for You: No Feels Safe at Home: Yes Safety Concerns: Feels Safe At This Time Assistive Devices: Glasses Allergies Allergies Allergy/AdvReac Type Severity Reaction Status Date / Time Iodinated Contrast Media Allergy Severe THROAT Verified 09/26/24 11:48 SWELLING, HARD TO BREATHE Home Meds Home Medications Medication Instructions Recorded Confirmed No Known Home Medications 09/26/24 09/26/24 Results & Data (ED) Vital Signs Vital Signs - 24 hr 09/26/24 10:56 09/26/24 11:43 09/26/24 14:00 Temperature 36.9 C Temperature Source Oral Pulse Rate 98 H 88 Pulse Rate [Left Finger] 67 Respiratory Rate 18 18 Respiratory Effort / Characteristics Non-Labored Spontaneous Respiratory Depth Normal Respiratory Pattern Regular Blood Pressure 134/68 Blood Pressure [Left Arm] 131/63 Blood Pressure Mean 90 Blood Pressure Mean [Left Arm] 85 Pulse Oximetry 96 98 Oxygen Delivery Method Room Air Sepsis Recent Fever Within 48 Hours No Sepsis New/Unexplained Change in Mental Status N/A Sepsis Action Taken by Nursing No Action Required Laboratory Data Attestation: I reviewed the patient's lab results. 09/26/24 11:05 09/26/24 11:05 Lab Results 09/26/24 09/26/24 Range/Units 11:05 13:08 WBC 14.92 H (4.8-10.8) K/ul RBC 5.29 (4.70-6.10) M/uL Hgb 16.8 (14.0-18.0) g/dl Hct 46.9 (42.0-52.0) % MCV 88.7 (80.0-100.0) fL MCH 31.8 (25.0-34.0) pg MCHC 35.8 (32.0-36.0) g/dL RDW Std Deviation 37.5 (36.4-46.3) fL RDW Coeff of Claudio 11.7 (11.5-14.5) % Plt Count 182 (130-400) K/uL MPV 10.8 (9.4-12.4) fL Immature Gran % (Auto) 0.5 % Neut % (Auto) 77.1 % Lymph % (Auto) 13.8 % Pershing % (Auto) 8.1 % Eos % (Auto) 0.3 % Baso % (Auto) 0.2 % Neut # (Auto) 11.49 H (1.40-6.50) K/uL Lymph # (Auto) 2.06 (1.20-3.40) K/uL Pershing # (Auto) 1.21 H (0.11-0.59) K/uL Eos # (Auto) 0.05 (0.00-0.50) K/uL Baso # (Auto) 0.03 (0.00-0.20) K/uL Immature Gran # (Auto) 0.08 (0.01-0.20) K/uL Sodium 137 (136-145) mmol/L Potassium 4.0 (3.5-5.1) mmol/L Chloride 99 (98-107) mmol/L Carbon Dioxide 33 H (21-32) mmol/L Anion Gap 5 (3-11) BUN 14 (6-23) mg/dl Creatinine 1.17 (0.6-1.4) mg/dl Est Cr Clr Drug Dosing 103.5 ml/min eGFR 81.32 BUN/Creatinine Ratio 12.0 (10-20) Glucose 103 H (70-99(Fasting)) mg/dl Calcium 9.4 (8.6-10.3) mg/dl Total Bilirubin 1.9 H D (0.2-1.0) mg/dl Direct Bilirubin 0.4 H (0-0.2) mg/dl AST 35 (13-39) U/L ALT 60 H (7-52) U/L Alkaline Phosphatase 70 (34-104) U/L Total Protein 8.3 (6.0-8.3) gm/dl Albumin 4.6 (3.4-5.0) gm/dl Globulin 3.7 (2.5-4.0) gm/dl Albumin/Globulin Ratio 1.2 (0.9-2) Lipase 25 (11-82) U/L Procalcitonin 0.23 (0-0.5) ng/ml Urine Color Yellow Urine Appearance Clear (Clear) Urine pH 6.5 (4.5-7.5) Ur Specific [place] 1.016 (1.000-1.030) Urine Protein Negative (Negative) Urine Glucose (UA) Negative (Negative) Urine Ketones Trace H (Negative) Urine Blood Trace H (Negative) Urine Nitrite Negative (Negative) Urine Bilirubin Negative (Negative) Urine Urobilinogen Negative (Negative) Ur Leukocyte Esterase Negative (Negative) Urine WBC (Auto) 0-5 (0-5) /hpf Urine RBC (Auto) 3-5 H (0-2) /hpf U Hyaline Cast (Auto) 0-2 (0-2) /lpf U Epithel Cells (Auto) 0-2 (0-2) /hpf Urine Bacteria (Auto) None Seen (None Seen) Administered Medications Piperacillin Sod/Tazobactam Sod (Zosyn) 4.5 gm in 100 mls @ 25 mls/hr IV Q8H BUBBA; Protocol Stop: 10/06/24 17:59 Last Admin: 09/27/24 02:17 Dose: 25 mls/hr Documented By: [id number] Infusion: 09/26/24 22:44 Dose: Infused Documented By: [id number] Admin: 09/26/24 18:36 Dose: 25 mls/hr Documented By: JESSIE Lactated Ringer's (Lr) 1,000 mls @ 125 mls/hr IV .Q8H BUBBA Stop: 09/27/24 14:44 Last Admin: 09/26/24 19:32 Dose: 125 mls/hr Documented By: [id number] Acetaminophen (Ofirmev) 1,000 mg in 100 mls @ 400 mls/hr IV Q8H PRN PRN Reason: Pain or Fever Stop: 09/29/24 17:11 Last Infusion: 09/26/24 20:04 Dose: Infused Documented By: [id number] Admin: 09/26/24 19:34 Dose: 400 mls/hr Documented By: [id number] Discontinued Medications Sodium Chloride (Nss) 1,000 mls @ 999 mls/hr IV .Q1H1M ONE Stop: 09/26/24 12:18 Last Infusion: 09/26/24 12:45 Dose: Infused Documented By: Admin: 09/26/24 11:44 Dose: 999 mls/hr Documented By: CAROLINE Piperacillin Sod/Tazobactam Sod (Zosyn) 4.5 gm in 100 mls @ 200 mls/hr IV NOW ONE; Protocol Stop: 09/26/24 12:18 Last Infusion: 09/26/24 13:04 Dose: Infused Documented By: Admin: 09/26/24 12:00 Dose: 200 mls/hr Documented By: CAROLINE Acetaminophen (Ofirmev) 1,000 mg in 100 mls @ 400 mls/hr IV NOW STA Stop: 09/26/24 12:04 Last Infusion: 09/26/24 13:03 Dose: Infused Documented By: Admin: 09/26/24 11:59 Dose: 400 mls/hr Documented By: CAROLINE Morphine Sulfate (Morphine Sulfate 2 Mg/Ml Carp) 0.5 mg IV NOW STA Stop: 09/26/24 22:49 Last Admin: 09/26/24 23:42 Dose: Not Given Documented By: [id number] Ondansetron HCl (Ondansetron Inj 2 Mg/Ml 2 Ml Vial) 4 mg IV NOW STA Stop: 09/26/24 11:51 Last Admin: 09/26/24 12:00 Dose: 4 mg Documented By: CAROLINE Imaging Data Radiologist's Impression: Cholangiopancreatography MRI 09/26/24 13:31 EXAM: MR MRCP CLINICAL HISTORY: R/o cholangitis. TECHNIQUE: Multiplanar multisequence magnetic resonance imaging of the abdomen without intravenous contrast. COMPARISON: multiple priors (US and CT abdomen and pelvis) reviewed. FINDINGS: Liver: Normal size and morphology. 2 cm focal lesion on T2-weighted images at right lobe. No focal hepatic lesions. Gallbladder: thickneing of the gall bladder wall up to 7 mm with pericholecystic fluid. two gall bladder signal void stones, measuring about 17 and 19 mm seen at the neck and gall bladder body. mild perihepatic ascites and strandy reticulations. Bile Ducts: Intrahepatic and extrahepatic bile ducts are normal in caliber. Common bile duct is normal in caliber with no evidence of strictures or filling defects. No evidence of choledocholithiasis. Pancreas: Normal size and contour. Homogeneous signal intensity on T2-weighted images. No masses or cystic lesions. Pancreatic Duct: Pancreatic duct is normal in caliber. No evidence of ductal dilatation or filling defects. Spleen: Normal size and appearance. Homogeneous signal intensity. Kidneys: Normal size, shape, and position of both kidneys. Homogeneous signal intensity on T2-weighted images. No renal stones, masses, or hydronephrosis. Adrenal Glands: Normal size and morphology bilaterally. No adrenal masses. Surrounding Structures: No evidence of free fluid or abnormal fluid collections in the abdomen. Normal appearance of the visualized bowel loops. IMPRESSION: acute calcular cholecystitis. No evidence of cholangitis. No evidence of biliary or pancreatic ductal abnormalities. Electronically signed by Jayson Landin 09-26-2024 7:44 PM Discharge Plan Visit Data Chief Complaint: Abdominal Pain Stated Complaint: GALLBLADDER ED Provider: Romario Myers Discharge Problem: Cholecystitis, Upper abdominal pain, Fever Patient Disposition: Admitted As Inpatient Discharge Instructions Interventions: ED Discharge Assessment Last Done: 09/26/24 14:51 Discharge Problem: Fever Qualifiers: Fever type: unspecified Qualified Code(s): R50.9 - Fever, unspecified
[2024-09-26 11:55] LABS: Albumin Globulin Ratio 1.2 (0.9-2); Albumin Level 4.6 gm/dl (3.4-5.0); Bilirubin,Total 1.9 mg/dl (0.2-1.0); Calcium 9.4 mg/dl (8.6-10.3); Creatinine Clr Calc Pharmacy 103.5 ml/min; Globulin 3.7 gm/dl (2.5-4.0); Total Protein 8.3 gm/dl (6.0-8.3)
[2024-09-26] MEDS: ACETAMINOPHEN 1,000 MG/100 ML VIAL IV STA (11:59)
[2024-09-26] MEDS: PIPERACILLIN/TAZOBACTAM 4.5 GM/100 ML BAG IV ONE (12:00)
[2024-09-26] MEDS: ONDANSETRON INJ 2 MG/ML 2 ML VIAL IV STA (12:00)
[2024-09-26 12:48] LABS: Bilirubin Direct 0.4 mg/dl (0-0.2)
[2024-09-26 13:28] LABS: Appearance Urine Clear (Clear); Bacteria Urine Automated None Seen (None Seen); Bilirubin Urine Negative (Negative); Blood Urine Trace (Negative); Cast Urine Automated 0-2 /lpf (0-2); Color Urine Yellow; Epithelial Cell Urine Auto 0-2 /hpf (0-2); Glucose Urine UA Negative (Negative); Ketones Urine Trace (Negative); Leukocyte Esterase Urine Negative (Negative); Nitrite Urine Negative (Negative); Protein Urine Negative (Negative); Specific Gravity Urine 1.016 (1.000-1.030); Urobilinogen Urine Negative (Negative); WBC Urine Automated 0-5 /hpf (0-5); pH Urine 6.5 (4.5-7.5)
--- NOTE | 2024-09-26 13:33 | History & Physical Report ---
Date of Service September 26, 2024 Assessment & Plan (1) Acute calculous cholecystitis: Plan: #Acute calculous cholecystitis Acute cholecystitis. MRCP to r/o cholangitis - if positive will need to consult GI. Surgery on board - appreciate recs. MRCP - if positive consult GI NPO @ midnight for surgery tomorrow Pain control - Tylenol, can add Dilaudid as needed Antiemetics on board Continue Zosyn trend labs including direct bili #Bipolar II Patient does carry a diagnosis of bipolar disorder. Unclear if he in on any medications for this. Would recommend addressing outpatient (2) Total bilirubin, elevated: (3) Bipolar II disorder with or without full interepisode recovery: History of Present Illness Chief Complaint: abdominal pain Primary Care Provider: [facility] 39 y/o here for evaluation of RUQ abdominal pain. Patient seen in the ED yesterday for similar symptoms. He did sign out AMA at that time as he had social items that needed addressed prior to surgery. Returned as symptoms had worsened. Patient experiencing nausea, abdominal pain, and fevers. Started on Zosyn in the ED. Upon my interview patient's pain is controlled. Amenable to inpatient treatment. At this time. Does report signing DNR/DNI paperwork outpatient with the [place]. He would like to change this and be full code. Allergies Allergy/AdvReac Type Severity Reaction Status Date / Time Iodinated Contrast Media Allergy Severe THROAT Verified 09/26/24 11:48 SWELLING, HARD TO BREATHE Home Medications Medication Instructions Recorded Confirmed Type No Known Home Medications 09/26/24 09/26/24 History Past Med/Surg History Problem List (Updated 09/26/24 @ 14:17 by Miriam South PA-C) Total bilirubin, elevated Acute calculous cholecystitis Encounter for pre-operative examination Cholecystitis (Acute) Abdominal pain, epigastric (Acute) Chest pain (Acute) Night sweats Daytime somnolence Snoring Apnea (Chronic) No significant past surgical history Bipolar II disorder with or without full interepisode recovery Left ankle sprain (Acute) Social History Smoking Status: Never smoker Preferred Language: Malay Feels Safe at Home: Yes Review of Systems 2 Review of Systems: See HPI Physical Exam 2 Physical Exam: Gen: well appearing patient in NAD HEENT: AT NC MMM Resp: CTAB no wheezing no increased work of breathing CV: RRR no m/r/g clinically well perfused Abd: soft, tender RUQ, no peritoneal signs, +BS, non-distended MSK: no obvious deformities Skin: no rashes or bruising Neuro: alert and oriented Psych: appropriate mood and affect Results & Data Results & Data Vital Signs (Past 12 Hours) Vital Signs Temp Pulse Resp BP Pulse Ox O2 Del Method 09/26/24 11:43 88 09/26/24 10:56 36.9 C 98 H 18 134/68 96 Room Air Laboratory Results 09/26/24 11:05 09/26/24 11:05 Supervising Physician Co-Signing Physician Notes ATTESTATION I also saw the patient and confirmed patricio portions of the history and exam. I agree with the impression and plan in the resident documentation, and as summarized below. 39-year-old male with a past medical history of bipolar disorder who presents emergency department with abdominal pain, nausea and fever this morning to 101 in the setting of being seen in this emergency department yesterday diagnosed with cholecystitis and had been admitted to the PACU for cholecystectomy. Patient left AGAINST MEDICAL ADVICE as he needed to address work issues and family issues. He reports a pain flare today with fever; he reports he was able to take care of the issues he was needing to address. Last had water at 0730 this morning and has not had anything to eat since yesterday. EXAM Hemodynamically stable; afebrile at present DATA Labs WBC 14.92 BMP WNL AST 35, ALT 60 Imaging US (09/25) shows GB wall thickening with sludge and stone CXR (09/25) shows NAD CT ABD and Pelvis (09/25) shows hepatomegaly and distended GB Micro No specimens IMPRESSION & PLAN Acute cholecystitis Leukocytosis MRCP Continue Zosyn NPO Appreciate surgery consultation Additional per resident documentation Resident Activity Tracking Resident Involvement: Resident Care Provided Care Provided: Adult Hospital Medicine
--- NOTE | 2024-09-26 14:20 | Surgery Consultation ---
Date of Consultation September 26, 2024 Assessment & Plan (1) Acute calculous cholecystitis: (2) Total bilirubin, elevated: Plan 39 yo male with acute cholecystitis with RUQ pain starting Satur evening with nausea and dry heaving initially now with continued pain and fever of 101 last evening now with elevated t. bili and d. bili. Examination consistent with acute cholecystitis. Will need MRCP and GI consult given elevation in t. bili and d.bili compared to yesterday (wnl) to rule out biliary obstruction. Will tentatively add on to OR tomorrow for laparoscopic cholecystectomy pending MRCP findings. Discussed laparoscopic cholecystectomy, risks, restrictions with patient. Continue IV Zosyn, pain management and antiemetics as needed, NPO after midnight and repeat am labs (CBC, CMP, D. bili) Discussed with DR. De La O who agrees with above. History of Present Illness Reason for Consultation: Acute cholecystitis RUQ pain Requesting Physician: Dr. Myers History of Present Illness Mr. Sigala is a 39 yo male who was here in emergency department yesterday with RUQ abdominal pain with nausea and dry heaving who was found to have acute cholecystitis on ultrasound and CT scan however left PACU AMA yesterday as he had to take care of work/home issues presents back to emergency department with continued RUQ pain, nausea, and fever of 101. States he has only drank water, any eating causes abdominal pain. Urine looks dark. Denies of any chest pain or shortness of breath but taking deep breath does increase the RUQ pain. Feels a little dizzy when standing up. No acute changes overnight other than fever. No prior abdominal surgeries. Is on phentermine for weight loss. Has lost 25 pounds in last 3 months. No blood thinning agents Allergies Allergy/AdvReac Type Severity Reaction Status Date / Time Iodinated Contrast Media Allergy Severe THROAT Verified 09/26/24 11:48 SWELLING, HARD TO BREATHE Home Medications Medication Instructions Recorded Confirmed Type No Known Home Medications 09/26/24 09/26/24 History Patient History Social History Smoking Status: Never smoker Preferred Language: Korean Feels Safe at Home: Yes Review of Systems Review of Systems: All systems reviewed & are unremarkable except as noted in HPI & below Physical Exam Constitutional: WD/WN, vitals as above cooperative and comfortable; no acute distress and not ill appearing Respiratory: normal respiratory effort, lungs clear to auscultation Cardiovascular: RRR, no murmur, no edema Gastrointestinal (Abdomen): Inspection/Auscultation: abdomen normal to inspection; abdomen not distended Percussion/Palpation: + abdomen tender (RUQ +Blanc's), + guarding (voluntary RUQ) and abdomen soft; abdomen not rigid and abdomen not firm Skin: no rashes, warm and dry no jaundice Psychiatric: A+Ox3, euthymic affect Results & Data Vital Signs (Past 12 Hours) Vital Signs Temp Pulse Resp BP Pulse Ox O2 Del Method 09/26/24 11:43 88 09/26/24 10:56 36.9 C 98 H 18 134/68 96 Room Air Laboratory Results 09/26/24 09/26/24 Range/Units 13:08 11:05 WBC 14.92 H (4.8-10.8) K/ul RBC 5.29 (4.70-6.10) M/uL Hgb 16.8 (14.0-18.0) g/dl Hct 46.9 (42.0-52.0) % MCV 88.7 (80.0-100.0) fL MCH 31.8 (25.0-34.0) pg MCHC 35.8 (32.0-36.0) g/dL RDW Std Deviation 37.5 (36.4-46.3) fL RDW Coeff of Claudio 11.7 (11.5-14.5) % Plt Count 182 (130-400) K/uL MPV 10.8 (9.4-12.4) fL Immature Gran % (Auto) 0.5 % Neut % (Auto) 77.1 % Lymph % (Auto) 13.8 % Kings % (Auto) 8.1 % Eos % (Auto) 0.3 % Baso % (Auto) 0.2 % Neut # (Auto) 11.49 H (1.40-6.50) K/uL Lymph # (Auto) 2.06 (1.20-3.40) K/uL Kings # (Auto) 1.21 H (0.11-0.59) K/uL Eos # (Auto) 0.05 (0.00-0.50) K/uL Baso # (Auto) 0.03 (0.00-0.20) K/uL Immature Gran # (Auto) 0.08 (0.01-0.20) K/uL Sodium 137 (136-145) mmol/L Potassium 4.0 (3.5-5.1) mmol/L Chloride 99 (98-107) mmol/L Carbon Dioxide 33 H (21-32) mmol/L Anion Gap 5 (3-11) BUN 14 (6-23) mg/dl Creatinine 1.17 (0.6-1.4) mg/dl Est Cr Clr Drug Dosing 103.5 ml/min eGFR 81.32 BUN/Creatinine Ratio 12.0 (10-20) Glucose 103 H (70-99(Fasting)) mg/dl Calcium 9.4 (8.6-10.3) mg/dl Total Bilirubin 1.9 H D (0.2-1.0) mg/dl Direct Bilirubin 0.4 H (0-0.2) mg/dl AST 35 (13-39) U/L ALT 60 H (7-52) U/L Alkaline Phosphatase 70 (34-104) U/L Total Protein 8.3 (6.0-8.3) gm/dl Albumin 4.6 (3.4-5.0) gm/dl Globulin 3.7 (2.5-4.0) gm/dl Albumin/Globulin Ratio 1.2 (0.9-2) Lipase 25 (11-82) U/L Procalcitonin 0.23 (0-0.5) ng/ml Urine Color Yellow Urine Appearance Clear (Clear) Urine pH 6.5 (4.5-7.5) Ur Specific [place] 1.016 (1.000-1.030) Urine Protein Negative (Negative) Urine Glucose (UA) Negative (Negative) Urine Ketones Trace H (Negative) Urine Blood Trace H (Negative) Urine Nitrite Negative (Negative) Urine Bilirubin Negative (Negative) Urine Urobilinogen Negative (Negative) Ur Leukocyte Esterase Negative (Negative) Urine WBC (Auto) 0-5 (0-5) /hpf Urine RBC (Auto) 3-5 H (0-2) /hpf U Hyaline Cast (Auto) 0-2 (0-2) /lpf U Epithel Cells (Auto) 0-2 (0-2) /hpf Urine Bacteria (Auto) None Seen (None Seen) Diagnostic Findings US gallbladder CLINICAL HISTORY: abd pain TECHNIQUE: Limited ultrasound of the liver and gallbladder was performed in greyscale and Doppler. Multiple images were obtained in transverse and longitudinal planes. COMPARISON: CT study dated 09/25/2024 FINDINGS: Liver: Liver size: 17.3cm (as reported by Tech). Liver appears enkarged in size with homogeneous bright echotexture suggest fatty infiltration. An echogenic focal lesion seen at posterior right hepatic lobe measuirng 2.6x2.5x2.4cm Gallbladder: Distended, with diffuse edematous wall thickening (9mm) Biliary sludge seen, and a stone measuirng Biliary Tree: Common bile duct diameter: 5.8mm. Common bile duct is within normal limits in caliber and not dilated. No evidence of choledocholithiasis or biliary obstruction. Pancreas: head and body show unremarkable sonographic features. tail not seen Right kidney: average size (12.2cm in LS). unremarkable appearance IMPRESSION: 1. Distended gall bladder, with marked wall thickening, edema, sludge and stone seen, suggest acute calcular cholecystitis, advised clinial correlation 2. Mild hepatomgealy with mild steatosis 3. Posterior segment of right hepatic lobe 2.6x2.5x2.4cm echogenic focal lesion, could be a hemangioma advised clinical correlation and if needed Triphasic CT study (not detected in CT due to lack of contrast) I personally reviewed ultrasound images and concur with above findings
[2024-09-26] MEDS ORDERED: ONDANSETRON INJ 2 MG/ML 2 ML VIAL IV PRN (17:12)
[2024-09-26] MEDS ORDERED: POLYETHYLENE (MIRALAX) 17 GM PACK PO PRN (17:12)
[2024-09-26] MEDS ORDERED: MAGNESIUM HYDROXIDE SUSP 30 ML UDC PO PRN (17:12)
[2024-09-26] MEDS ORDERED: MELATONIN 3 MG TAB PO PRN (17:12)
[2024-09-26] MEDS ORDERED: ALUMINUM/MAGNESIUM SUSP 30 ML UDC PO PRN (17:12)
[2024-09-26] MEDS: PIPERACILLIN/TAZOBACTAM 4.5 GM/100 ML BAG IV SCH (18:36)
[2024-09-26] MEDS: LACTATED RINGER'S 1,000 ML IV SCH (19:32)
[2024-09-26] MEDS: ACETAMINOPHEN 1,000 MG/100 ML VIAL IV PRN (19:34)
--- NOTE | 2024-09-26 19:45 | Magnetic Resonance Report ---
EXAM: MR MRCP CLINICAL HISTORY: R/o cholangitis. TECHNIQUE: Multiplanar multisequence magnetic resonance imaging of the abdomen without intravenous contrast. COMPARISON: multiple priors (US and CT abdomen and pelvis) reviewed. FINDINGS: Liver: Normal size and morphology. 2 cm focal lesion on T2-weighted images at right lobe. No focal hepatic lesions. Gallbladder: thickneing of the gall bladder wall up to 7 mm with pericholecystic fluid. two gall bladder signal void stones, measuring about 17 and 19 mm seen at the neck and gall bladder body. mild perihepatic ascites and strandy reticulations. Bile Ducts: Intrahepatic and extrahepatic bile ducts are normal in caliber. Common bile duct is normal in caliber with no evidence of strictures or filling defects. No evidence of choledocholithiasis. Pancreas: Normal size and contour. Homogeneous signal intensity on T2-weighted images. No masses or cystic lesions. Pancreatic Duct: Pancreatic duct is normal in caliber. No evidence of ductal dilatation or filling defects. Spleen: Normal size and appearance. Homogeneous signal intensity. Kidneys: Normal size, shape, and position of both kidneys. Homogeneous signal intensity on T2-weighted images. No renal stones, masses, or hydronephrosis. Adrenal Glands: Normal size and morphology bilaterally. No adrenal masses. Surrounding Structures: No evidence of free fluid or abnormal fluid collections in the abdomen. Normal appearance of the visualized bowel loops. IMPRESSION: acute calcular cholecystitis. No evidence of cholangitis. No evidence of biliary or pancreatic ductal abnormalities. Electronically signed by Jayson Landin 09-26-2024 7:44 PM
[2024-09-26] MEDS: MoRPHine SULFATE 2 MG/ML CARP IV STA (23:42)
[2024-09-27] MEDS: MoRPHine SULFATE 2 MG/ML CARP IV STA (05:47)
--- NOTE | 2024-09-27 07:03 | Hospitalist Progress Note ---
Date of Service September 27, 2024 Assessment & Plan (1) Acute calculous cholecystitis: (2) Total bilirubin, elevated: (3) Bipolar II disorder with or without full interepisode recovery: Plan: Plan 39 yo admitted with acute calculus cholecystitis. Endorses RUQ pain for few days, had to take care of stuffs at home previous day, so went back signing AMA, amenable to treatment at current hospital stay. Vitals stable, GI recommends no ERCP, Surgery recs Lap jaquelin. #Acute calculous cholecystitis Vitals: Stable WBCs trending down. Bili : Mildly elevated TB/DB: stable trend. ALP WNL. RUQ pain persistent. MRCP - unremarkable, GI clears for Lap jaquelin. NPO since midnight Surgery today. Pain control - Tylenol, Dilaudid PRN Antiemetics on board Continue Zosyn #Bipolar II Patient does carry a diagnosis of bipolar disorder. Unclear if he in on any medications for this. Would recommend addressing outpatient Dispo: Home after DC. DVT prophylaxis: Mechanical/ per surgery team. Admission and Anticipated Discharge Date Admission Date: September 26, 2024 Supervising Physician Co-Signing Physician Notes ATTESTATION I also saw the patient and confirmed patricio portions of the history and exam. I agree with the impression and plan in the resident documentation, and as summarized below. Patient is seen late afternoon now S/P cholecystectomy. Ate dinner without nausea or emesis. No pain to report. EXAM 120/77, 57, 20 Semi reclined in bed, family at bedside NAD CV RRR Lungs with non labored respirations DATA Labs WBC 14.42 TB 1.9/Direct 0.5 AST 33, ALT 57 IMPRESSION & PLAN Acute cholecystitis, S/P cholecystectomy POD #0 Leukocytosis Elevated bilirubin Repeat labs in AM Diet advanced per surgery Likely discharge in AM Additional per resident documentation Subjective Endorses RUQ pain, mostly when moves, 10. No nausea, fever, CP, SOB. NPO since last night. Was with GI team when I saw him this morning. Review of Systems Review of Systems: As per HPI Physical Exam Physical Exam: Constitutional: Well appearing, No acute distress HEENT: Atraumatic, Normocephalic, No conjunctival injection CVS: Looks well perfused. Respiratory: No increased work of breathing GI: Soft, Nondistended, tender RUQ MSK: No gross deformities noted Skin: Warm, Dry, No rashes Neuro: Alert, Oriented to TPP, No Focal deficit Psych: Mood and Affect congruent, Cooperative on exam Results & Data Results & Data Vital Signs (Past 12 Hours) Vital Signs Temp Pulse Pulse Resp BP Pulse Ox O2 Del Method 09/27/24 03:33 36.7 C 83 20 114/70 95 Room Air 09/26/24 23:48 36.9 C 75 20 110/70 96 Room Air 09/26/24 21:49 65 09/26/24 19:50 36.6 C 87 20 110/72 96 Room Air 09/26/24 19:09 36.6 C 68 18 106/71 95 Room Air Resident Activity Tracking Resident Involvement: Resident Care Provided Care Provided: Adult Hospital Medicine
[2024-09-27 07:07] LABS: Basophils # (auto) 0.02 K/uL (0.00-0.20); Basophils % (auto) 0.2 %; Eosinophils # (auto) 0.24 K/uL (0.00-0.50); Eosinophils % (auto) 2.1 %; Hematocrit (blood only) 40.9 % (42.0-52.0); Hemoglobin 14.4 g/dl (14.0-18.0); Immature Granulocytes # (auto) 0.04 K/uL (0.01-0.20); Immature Granulocytes % (auto) 0.4 %; Lymphocytes # (auto) 1.62 K/uL (1.20-3.40); Lymphocytes % (auto) 14.2 %; Mean Corpuscular Hemoglobin 31.4 pg (25.0-34.0); Mean Corpuscular Hgb Conc 35.2 g/dL (32.0-36.0); Mean Corpuscular Volume 89.1 fL (80.0-100.0); Mean Platelet Volume 10.9 fL (9.4-12.4); Monocytes # (auto) 1.07 K/uL (0.11-0.59); Monocytes % (auto) 9.4 %; Neutrophils # (auto) 8.43 K/uL (1.40-6.50); Neutrophils % (auto) 73.7 %; Platelet Count 165 K/uL (130-400); RDW Coefficient of Variation 11.7 % (11.5-14.5); RDW Standard Deviation 37.4 fL (36.4-46.3); Red Blood Count 4.59 M/uL (4.70-6.10); White Blood Count 11.42 K/ul (4.8-10.8)
[2024-09-27 07:28] LABS: Albumin Globulin Ratio 1.3 (0.9-2); Albumin Level 3.8 gm/dl (3.4-5.0); BUN Creatinine Ratio 12.5 (10-20); Bilirubin Direct 0.5 mg/dl (0-0.2); Bilirubin,Total 1.9 mg/dl (0.2-1.0); Calcium 8.8 mg/dl (8.6-10.3); Creatinine Clr Calc Pharmacy 107.7 ml/min; Total Protein 6.8 gm/dl (6.0-8.3)
--- NOTE | 2024-09-27 08:30 | Surgery Progress Note ---
Date of Service September 27, 2024 Assessment & Plan (1) Acute calculous cholecystitis: (2) Total bilirubin, elevated: Plan 39 yo male with acute cholecystitis with RUQ pain starting Saturday evening with nausea and dry heaving initially now with continued pain and fever of 101 last evening now with elevated t. bili and d. bili. Examination consistent with acute cholecystitis. Will need MRCP and GI consult given elevation in t. bili and d.bili compared to yesterday (wnl) to rule out biliary obstruction. Will tentatively add on to OR tomorrow for laparoscopic cholecystectomy pending MRCP findings. Discussed laparoscopic cholecystectomy, risks, restrictions with patient. Continue IV Zosyn, pain management and antiemetics as needed, NPO after midnight and repeat am labs (CBC, CMP, D. bili) 09/27/2024 avss leukocytosis improved MRCP negative for choledoco however t. bili still 1.9 and d. bili slightly up at 0.5(0.4). Alk phos negative Plan: NPO for Lap jaquelin this afternoon pending GI consultation. Want GI input/opinion given persistently elevated t. bili and slight increase in d. bili this am even though MRCP negative as discussed with patient MRCP can be negative even with + choledocholithiasis continue pain management and antiemetics as needed continue medical management Discussed with DR. De La O who agrees with above. Admission and Anticipated Discharge Date Admission Date: September 26, 2024 Subjective still having pain in RUQ, stable no nausea this am has not ate this am, just a few ice chips Physical Exam Constitutional: WD/WN, vitals as above + obese, cooperative and comfortable; no acute distress and not ill appearing Respiratory: normal respiratory effort; no respiratory distress Skin: no rashes, warm and dry no jaundice Results & Data Vital Signs (Past 12 Hours) Vital Signs Temp Pulse Pulse Resp BP Pulse Ox O2 Del Method 09/27/24 07:41 36.4 C L 66 18 103/66 95 Room Air 09/27/24 07:15 67 09/27/24 03:33 36.7 C 83 20 114/70 95 Room Air 09/26/24 23:48 36.9 C 75 20 110/70 96 Room Air 09/26/24 21:49 65 Laboratory Results 09/27/24 09/26/24 09/26/24 Range/Units 06:34 13:08 11:05 WBC 11.42 H 14.92 H (4.8-10.8) K/ul RBC 4.59 L 5.29 (4.70-6.10) M/uL Hgb 14.4 16.8 (14.0-18.0) g/dl Hct 40.9 L 46.9 (42.0-52.0) % MCV 89.1 88.7 (80.0-100.0) fL MCH 31.4 31.8 (25.0-34.0) pg MCHC 35.2 35.8 (32.0-36.0) g/dL RDW Std Deviation 37.4 37.5 (36.4-46.3) fL RDW Coeff of Claudio 11.7 11.7 (11.5-14.5) % Plt Count 165 182 (130-400) K/uL MPV 10.9 10.8 (9.4-12.4) fL Immature Gran % (Auto) 0.4 0.5 % Neut % (Auto) 73.7 77.1 % Lymph % (Auto) 14.2 13.8 % [place] % (Auto) 9.4 8.1 % Eos % (Auto) 2.1 0.3 % Baso % (Auto) 0.2 0.2 % Neut # (Auto) 8.43 H 11.49 H (1.40-6.50) K/uL Lymph # (Auto) 1.62 2.06 (1.20-3.40) K/uL [place] # (Auto) 1.07 H 1.21 H (0.11-0.59) K/uL Eos # (Auto) 0.24 0.05 (0.00-0.50) K/uL Baso # (Auto) 0.02 0.03 (0.00-0.20) K/uL Immature Gran # (Auto) 0.04 0.08 (0.01-0.20) K/uL Sodium 137 137 (136-145) mmol/L Potassium 4.0 4.0 (3.5-5.1) mmol/L Chloride 102 99 (98-107) mmol/L Carbon Dioxide 29 33 H (21-32) mmol/L Anion Gap 6 5 (3-11) BUN 14 14 (6-23) mg/dl Creatinine 1.12 1.17 (0.6-1.4) mg/dl Est Cr Clr Drug Dosing 107.7 103.5 ml/min eGFR 85.70 81.32 BUN/Creatinine Ratio 12.5 12.0 (10-20) Glucose 97 103 H (70-99(Fasting)) mg/dl Calcium 8.8 9.4 (8.6-10.3) mg/dl Total Bilirubin 1.9 H 1.9 H D (0.2-1.0) mg/dl Direct Bilirubin 0.5 H 0.4 H (0-0.2) mg/dl AST 33 35 (13-39) U/L ALT 57 H 60 H (7-52) U/L Alkaline Phosphatase 67 70 (34-104) U/L Total Protein 6.8 8.3 (6.0-8.3) gm/dl Albumin 3.8 4.6 (3.4-5.0) gm/dl Globulin 3.0 3.7 (2.5-4.0) gm/dl Albumin/Globulin Ratio 1.3 1.2 (0.9-2) Lipase 25 (11-82) U/L Procalcitonin 0.23 (0-0.5) ng/ml Urine Color Yellow Urine Appearance Clear (Clear) Urine pH 6.5 (4.5-7.5) Ur Specific [place] 1.016 (1.000-1.030) Urine Protein Negative (Negative) Urine Glucose (UA) Negative (Negative) Urine Ketones Trace H (Negative) Urine Blood Trace H (Negative) Urine Nitrite Negative (Negative) Urine Bilirubin Negative (Negative) Urine Urobilinogen Negative (Negative) Ur Leukocyte Esterase Negative (Negative) Urine WBC (Auto) 0-5 (0-5) /hpf Urine RBC (Auto) 3-5 H (0-2) /hpf U Hyaline Cast (Auto) 0-2 (0-2) /lpf U Epithel Cells (Auto) 0-2 (0-2) /hpf Urine Bacteria (Auto) None Seen (None Seen) Diagnostic Findings EXAM: MR MRCP CLINICAL HISTORY: R/o cholangitis. TECHNIQUE: Multiplanar multisequence magnetic resonance imaging of the abdomen without intravenous contrast. COMPARISON: multiple priors (US and CT abdomen and pelvis) reviewed. FINDINGS: Liver: Normal size and morphology. 2 cm focal lesion on T2-weighted images at right lobe. No focal hepatic lesions. Gallbladder: thickneing of the gall bladder wall up to 7 mm with pericholecystic fluid. two gall bladder signal void stones, measuring about 17 and 19 mm seen at the neck and gall bladder body. mild perihepatic ascites and strandy reticulations. Bile Ducts: Intrahepatic and extrahepatic bile ducts are normal in caliber. Common bile duct is normal in caliber with no evidence of strictures or filling defects. No evidence of choledocholithiasis. Pancreas: Normal size and contour. Homogeneous signal intensity on T2-weighted images. No masses or cystic lesions. Pancreatic Duct: Pancreatic duct is normal in caliber. No evidence of ductal dilatation or filling defects. Spleen: Normal size and appearance. Homogeneous signal intensity. Kidneys: Normal size, shape, and position of both kidneys. Homogeneous signal intensity on T2-weighted images. No renal stones, masses, or hydronephrosis. Adrenal Glands: Normal size and morphology bilaterally. No adrenal masses. Surrounding Structures: No evidence of free fluid or abnormal fluid collections in the abdomen. Normal appearance of the visualized bowel loops. IMPRESSION: acute calcular cholecystitis. No evidence of cholangitis.
[2024-09-27] MEDS: ACETAMINOPHEN 1,000 MG/100 ML VIAL IV STA (08:50)
--- NOTE | 2024-09-27 08:56 | Gastrointestinal Consultation ---
Date of Consultation September 27, 2024 Assessment & Plan (1) Upper abdominal pain: 39 year old male admitted w/ acute calculous cholecystitis, GI asked to evaluate for potential ERCP. No apparent stone on imaging, CBD is non-dilated w/ Tbili 1.9. Case discussed with attending who recommends proceeding with cholecystectomy. No current indication for pre-operative ERCP. Trend LFTs. Recall GI as needed. I spent a total of 60 minutes on the date of service in review of patient's record, and previously obtained information in person and appropriate medical visit, discussion and education of plan, with patient and/or caregiver, placing orders for tests/referral/procedures as medically necessary and documentation of pertinent clinical information in patient's medical records for their visit today. Supervising Physician Co-Signing Physician Notes I saw and examined this patient with our nurse practitioner and agree with her assessment and plan. Clinical picture consistent with acute cholecystitis. Imaging does not show any common bile duct stones or extrahepatic biliary obstruction. No need for ERCP at this time. Okay to proceed with cholecystectomy. History of Present Illness Reason for Consultation: cholecystitis + elevation in t. bili and d.bili Requesting Physician: Washington Lorenz DO Attending Physician: Washington Lorenz DO History of Present Illness 39 year old male with history below admitted through the ED w/ abd pain - imaging concerning for acute cholecystitis. GI was asked to evaluate given elevated LFTs. Pt was seen and evaluated, chart reviewed. Notes symptoms started Thursday with abd pain, associated with report of fevers at home. Denies dark urine, corina colored stools. No fever, chills, CP, SOB. WBC 14.9 --> 11.4 Tbili 1.9 --> 1.9 AST 35 --> 33 ALT 60 --> 57 ALKP 70 --> 67 Lipase 25 MRCP 2024: acute cholecystitis, no evidence of cholangitis, no biliary or pancreatic ductal abnormalities ABD US 2024: distended gall bladder, with marked wall thickening, edema, sludge and stone seen, CBD 5.8 mm Allergies Allergy/AdvReac Type Severity Reaction Status Date / Time Iodinated Contrast Media Allergy Severe THROAT Verified 09/27/24 11:23 SWELLING, HARD TO BREATHE Home Medications Medication Instructions Recorded Confirmed Type No Known Home Medications 09/26/24 09/26/24 History Patient History Medical History (Updated 09/27/24 @ 11:14 by Talib Funk MD) Cholecystitis Snoring Social History Smoking Status: Never smoker Do You Dip or Chew Tobacco: No; Hx Alcohol Use: No Hx Substance Use: No Preferred Language: Surinamese Communication Ability: Effective Manager Infusion Required: No Beliefs That Will Affect Care: None Current Living Situation: Spouse Other Information That Helps Us Care for You: No Feels Safe at Home: Yes Safety Concerns: Feels Safe At This Time Assistive Devices: Glasses Review of Systems Review of Systems: All other findings negative except as noted in HPI. Physical Exam Constitutional: WD/WN, vitals as above Respiratory: normal respiratory effort, lungs clear to auscultation Cardiovascular: RRR, no murmur, no edema Gastrointestinal (Abdomen): Inspection/Auscultation: normal bowel sounds Percussion/Palpation: + abdomen tender and abdomen soft; no guarding and abdomen not rigid Skin: no rashes, warm and dry Results & Data Vital Signs (Past 12 Hours) Vital Signs Temp Pulse Pulse Resp BP Pulse Ox O2 Del Method 09/27/24 07:41 97.5 F L 66 18 103/66 95 Room Air 09/27/24 07:15 67 09/27/24 03:33 98.1 F 83 20 114/70 95 Room Air 09/26/24 23:48 98.4 F 75 20 110/70 96 Room Air 09/26/24 21:49 65 Laboratory Results 09/27/24 09/26/24 09/26/24 Range/Units 06:34 13:08 11:05 WBC 11.42 H 14.92 H (4.8-10.8) K/ul RBC 4.59 L 5.29 (4.70-6.10) M/uL Hgb 14.4 16.8 (14.0-18.0) g/dl Hct 40.9 L 46.9 (42.0-52.0) % MCV 89.1 88.7 (80.0-100.0) fL MCH 31.4 31.8 (25.0-34.0) pg MCHC 35.2 35.8 (32.0-36.0) g/dL RDW Std Deviation 37.4 37.5 (36.4-46.3) fL RDW Coeff of Claudio 11.7 11.7 (11.5-14.5) % Plt Count 165 182 (130-400) K/uL MPV 10.9 10.8 (9.4-12.4) fL Immature Gran % (Auto) 0.4 0.5 % Neut % (Auto) 73.7 77.1 % Lymph % (Auto) 14.2 13.8 % [place] % (Auto) 9.4 8.1 % Eos % (Auto) 2.1 0.3 % Baso % (Auto) 0.2 0.2 % Neut # (Auto) 8.43 H 11.49 H (1.40-6.50) K/uL Lymph # (Auto) 1.62 2.06 (1.20-3.40) K/uL [place] # (Auto) 1.07 H 1.21 H (0.11-0.59) K/uL Eos # (Auto) 0.24 0.05 (0.00-0.50) K/uL Baso # (Auto) 0.02 0.03 (0.00-0.20) K/uL Immature Gran # (Auto) 0.04 0.08 (0.01-0.20) K/uL Sodium 137 137 (136-145) mmol/L Potassium 4.0 4.0 (3.5-5.1) mmol/L Chloride 102 99 (98-107) mmol/L Carbon Dioxide 29 33 H (21-32) mmol/L Anion Gap 6 5 (3-11) BUN 14 14 (6-23) mg/dl Creatinine 1.12 1.17 (0.6-1.4) mg/dl Est Cr Clr Drug Dosing 107.7 103.5 ml/min eGFR 85.70 81.32 BUN/Creatinine Ratio 12.5 12.0 (10-20) Glucose 97 103 H (70-99(Fasting)) mg/dl Calcium 8.8 9.4 (8.6-10.3) mg/dl Total Bilirubin 1.9 H 1.9 H D (0.2-1.0) mg/dl Direct Bilirubin 0.5 H 0.4 H (0-0.2) mg/dl AST 33 35 (13-39) U/L ALT 57 H 60 H (7-52) U/L Alkaline Phosphatase 67 70 (34-104) U/L Total Protein 6.8 8.3 (6.0-8.3) gm/dl Albumin 3.8 4.6 (3.4-5.0) gm/dl Globulin 3.0 3.7 (2.5-4.0) gm/dl Albumin/Globulin Ratio 1.3 1.2 (0.9-2) Lipase 25 (11-82) U/L Procalcitonin 0.23 (0-0.5) ng/ml Urine Color Yellow Urine Appearance Clear (Clear) Urine pH 6.5 (4.5-7.5) Ur Specific [place] 1.016 (1.000-1.030) Urine Protein Negative (Negative) Urine Glucose (UA) Negative (Negative) Urine Ketones Trace H (Negative) Urine Blood Trace H (Negative) Urine Nitrite Negative (Negative) Urine Bilirubin Negative (Negative) Urine Urobilinogen Negative (Negative) Ur Leukocyte Esterase Negative (Negative) Urine WBC (Auto) 0-5 (0-5) /hpf Urine RBC (Auto) 3-5 H (0-2) /hpf U Hyaline Cast (Auto) 0-2 (0-2) /lpf U Epithel Cells (Auto) 0-2 (0-2) /hpf Urine Bacteria (Auto) None Seen (None Seen) Diagnostic Findings Cholangiopancreatography MRI 09/26/24 13:31 EXAM: MR MRCP CLINICAL HISTORY: R/o cholangitis. TECHNIQUE: Multiplanar multisequence magnetic resonance imaging of the abdomen without intravenous contrast. COMPARISON: multiple priors (US and CT abdomen and pelvis) reviewed. FINDINGS: Liver: Normal size and morphology. 2 cm focal lesion on T2-weighted images at right lobe. No focal hepatic lesions. Gallbladder: thickneing of the gall bladder wall up to 7 mm with pericholecystic fluid. two gall bladder signal void stones, measuring about 17 and 19 mm seen at the neck and gall bladder body. mild perihepatic ascites and strandy reticulations. Bile Ducts: Intrahepatic and extrahepatic bile ducts are normal in caliber. Common bile duct is normal in caliber with no evidence of strictures or filling defects. No evidence of choledocholithiasis. Pancreas: Normal size and contour. Homogeneous signal intensity on T2-weighted images. No masses or cystic lesions. Pancreatic Duct: Pancreatic duct is normal in caliber. No evidence of ductal dilatation or filling defects. Spleen: Normal size and appearance. Homogeneous signal intensity. Kidneys: Normal size, shape, and position of both kidneys. Homogeneous signal intensity on T2-weighted images. No renal stones, masses, or hydronephrosis. Adrenal Glands: Normal size and morphology bilaterally. No adrenal masses. Surrounding Structures: No evidence of free fluid or abnormal fluid collections in the abdomen. Normal appearance of the visualized bowel loops. IMPRESSION: acute calcular cholecystitis. No evidence of cholangitis. No evidence of biliary or pancreatic ductal abnormalities. Electronically signed by Jayson Landin 09-26-2024 7:44 PM PG Care Time/CCT Total # of Minutes Spent Total Time Spent with Patient: Total time spent is greater than 50% in coordination of care (as documented) at patient's floor/unit and/or counseling patient: Coding Level of Care Code 05926 IN/OBS CONSULT LVL 4,60M Diagnoses Upper abdominal pain R10.10
[2024-09-27] MEDS ORDERED: ROCURONIUM BROMIDE 10 MG/ML 5 ML VIAL IV ONE (10:59)
[2024-09-27] MEDS ORDERED: MIDAZOLAM HCL 1 MG/ML 2ML VIAL ONE (10:59)
[2024-09-27] MEDS ORDERED: fentaNYL citrate PF 100 MCG/2 ML VIAL ONE (10:59)
[2024-09-27] MEDS ORDERED: PROPOFOL IV EMULSION 10 MG/ML 20 ML VIAL IV ONE ×2 (10:59→12:54)
[2024-09-27] MEDS ORDERED: ONDANSETRON INJ 2 MG/ML 2 ML VIAL ONE (10:59)
[2024-09-27] MEDS ORDERED: DEXAMETHASONE SOD INJ 4 MG/ML VIAL ONE (10:59)
[2024-09-27] MEDS ORDERED: SUGAMMADEX SODIUM 200 MG/2 ML VIAL IV ONE (10:59)
[2024-09-27] MEDS ORDERED: ONDANSETRON INJ 2 MG/ML 2 ML VIAL IV PRN (11:12)
[2024-09-27] MEDS ORDERED: ATROPINE SULFATE 0.1 MG/ML 10ML SYR IV PRN (11:12)
[2024-09-27] MEDS ORDERED: HYDROmorphone INJ 1 MG/ML SYRINGE IV PRN (11:12)
[2024-09-27] MEDS ORDERED: ePHEDrine sulfate 50 MG/ML AMP IV PRN (11:12)
[2024-09-27] MEDS ORDERED: PROMETHAZINE HCL 6.25 MG in SODIUM CHLORIDE 0.9% 50 ML IV PRN (11:12)
[2024-09-27] MEDS ORDERED: fentaNYL citrate PF 100 MCG/2 ML VIAL IV PRN (11:12)
--- NOTE | 2024-09-27 11:14 | Anesthesiology Consultation ---
Date of Service September 27, 2024 Assessment & Plan (1) Encounter for pre-operative examination: Chart Review Chart Review: Acceptable Risk for Surgery and Patient NOT seen in Pre Admission Testing Consults Requested none History Surgery Operation Date: 09/27/24 08:20 Proposed Procedures p Laparoscopic Cholecystectomy - Shiva De La O MD Height/Weight Height: 6 ft Weight: 98.6 kg Allergies Allergy/AdvReac Type Severity Reaction Status Date / Time Iodinated Contrast Media Allergy Severe THROAT Verified 09/26/24 11:48 SWELLING, HARD TO BREATHE Medications Home Medications Medication Instructions Recorded Confirmed Last Taken No Known Home Medications 09/26/24 09/26/24 Unknown Active Medications Generic Name Dose Route Start Last Admin Trade Name Freq PRN Reason Stop Dose Admin Piperacillin Sod/Tazobactam Sod 4.5 gm in 100 mls @ 25 mls/hr 09/26/24 18:00 09/27/24 09:48 Zosyn IV 10/06/24 17:59 25 mls/hr Q8H BUBBA Administration Protocol Lactated Ringer's 1,000 mls @ 125 mls/hr 09/26/24 14:45 09/27/24 03:50 Lr IV 09/27/24 14:44 125 mls/hr .Q8H BUBBA Administration Acetaminophen 1,000 mg in 100 mls @ 400 mls/hr 09/26/24 17:12 09/27/24 04:43 Ofirmev IV 09/29/24 17:11 Infused Q8H PRN Infusion Pain or Fever Past Medical History Medical History (Updated 09/27/24 @ 11:14 by Talib Funk MD) Cholecystitis Snoring Past Anesthesia History No Hx of Anesthesia Complications and No Family Hx of Anesthesia Complications Social History Smoking Status: Never smoker Do You Dip or Chew Tobacco: No Hx Alcohol Use: No Hx Substance Use: No substance use type: does not use Physical Exam Vital Signs Last Vital Signs Temp 36.4 C L 09/27/24 07:41 Pulse 66 09/27/24 07:41 Resp 18 09/27/24 07:41 BP 103/66 09/27/24 07:41 Pulse Ox 95 09/27/24 07:41 O2 Del Method Room Air 09/27/24 07:41 Testing Laboratory Results 09/27/24 06:34 09/27/24 06:34 Urine Color Yellow 09/26/24 13:08 Urine Appearance Clear (Clear) 09/26/24 13:08 Urine pH 6.5 (4.5-7.5) 09/26/24 13:08 Ur Specific [place] 1.016 (1.000-1.030) 09/26/24 13:08 Urine Protein Negative (Negative) 09/26/24 13:08 Urine Glucose (UA) Negative (Negative) 09/26/24 13:08 Urine Ketones Trace (Negative) H 09/26/24 13:08 Urine Nitrite Negative (Negative) 09/26/24 13:08 Ur Leukocyte Esterase Negative (Negative) 09/26/24 13:08 Urine WBC (Auto) 0-5 /hpf (0-5) 09/26/24 13:08 Urine RBC (Auto) 3-5 /hpf (0-2) H 09/26/24 13:08 U Hyaline Cast (Auto) 0-2 /lpf (0-2) 09/26/24 13:08 U Epithel Cells (Auto) 0-2 /hpf (0-2) 09/26/24 13:08 Urine Bacteria (Auto) None Seen (None Seen) 09/26/24 13:08 Electrocardiogram DICTATED BY: Froylan Lucero MD Test Reason : Blood Pressure : */* mmHG Vent. Rate : 60 BPM Atrial Rate : 60 BPM P-R Int : 166 ms QRS Dur : 82 ms QT Int : 394 ms P-R-T Axes : 45 77 70 degrees QTcB Int : 394 ms Normal sinus rhythm Early repolarization Normal ECG When compared with ECG of 29-Apr-2023 11:53, No significant change was found Confirmed by Froylan Lucero ([id number]) on 09/25/2024 1:23:42 PM
--- NOTE | 2024-09-27 11:22 | History & Physical Bridge Note ---
Date of Service September 27, 2024 History & Physical Bridge Note I have examined the patient, reviewed the History & Physical and in the interval since the performance of the History & Physical I have noted the following changes of clinical significance: no changes noted
--- NOTE | 2024-09-27 13:12 | Post Operative Brief Note ---
Immediate Post Op Note Date of Surgery September 27, 2024 Pre & Post Diagnosis Operation Date: 09/27/24 08:20 Pre-Op Diagnosis: (1) Acute calculous cholecystitis (2) Total bilirubin, elevated Post-Op Diagnosis: (1) Acute calculous cholecystitis (2) Total bilirubin, elevated I identified the patient and participated in the time-out.: Yes Procedure Operation Date: 09/27/24 08:20 Actual Procedures p Laparoscopic Cholecystectomy(Not Applicable) - Shiva De La O MD Surgeon Shiva De La O MD [employer] [place] assisted with tissue retraction, camera op, closure Estimated Blood Loss 10 Findings Consistent with Post-Op Diagnosis severe acute calculus cholecystitis
[2024-09-27] MEDS: BUPIVACAINE/EPINEPHRINE 0.25% 1:200,000 30 ML VIAL ONE (13:14)
--- NOTE | 2024-09-27 13:14 | Operative Report ---
Post Operative Report Pre & Post Diagnosis Operation Date: 09/27/24 08:20 Pre-Op Diagnosis: (1) Acute calculous cholecystitis (2) Total bilirubin, elevated Post-Op Diagnosis: (1) Acute calculous cholecystitis (2) Total bilirubin, elevated I identified the patient and participated in the time-out.: Yes Procedure Operation Date: 09/27/24 08:20 Actual Procedures p Laparoscopic Cholecystectomy(Not Applicable) - Shiva De La O MD Surgeon Shiva De La O MD Electron Microscopist LORETTA South assisted with tissue retraction, camera op, closure Estimated Blood Loss 10 Findings Consistent with Post-Op Diagnosis Specimens gallbladder Drains none Anesthesia Type General Complications none Description of Procedure the patient was taken to the operating room, and placed supine on the operating table. A timeout was performed, perioperative antibiotics were administered, SCD boots were placed. After adequate anesthesia and analgesia was obtained, the abdomen was prepped and draped in the normal sterile fashion. Local anesthetic was injected into and around the proposed incision sites. An incision was made with a 15 blade scalpel in the supraumbilical region and carried down to the level of the fascia. The fascia was grasped with a trach hook, and a varies needle was used to enter the abdominal cavity. The abdomen was insufflated to a pressure of 15 mmHg, and a 11 mm trocar was placed in this location. A 10 mm, 30 degree laparoscope was placed into the abdominal cavity, and the abdomen was surveyed. Two 5 mm trochars were placed along the right costal margin, and one 5 mm trocar was placed in the subxiphoid region under direct visualization. There were adhesions of the omentum of the gallbladder which were taken down with judicious use of electrocautery as well as blunt dissection. The gallbladder was severely distended and taut. It was drained with an 18-gauge aspiration needle of bile. The gallbladder was grasped and retracted cephalad and laterally, exposing the triangle of Calot. Dissection began in the triangle with a combination of blunt dissection with the [place] dissector, and judicious use of the hook cautery. The cystic duct and cystic artery were dissected free circumferentially, and a critical view of safety was obtained. The cystic duct and cystic artery were clipped and transected, and the gallbladder was removed from the gallbladder fossa with the hook cautery. The camera was switched to a 5 mm, the gallbladder was placed in an Endo Catch bag, and removed via the supraumbilical port site. Given the size and thickness of the gallbladder, we had to increase the size of the supraumbilical port site to remove the gallbladder. Some bile was filled at this location. It was suctioned free. No stones were left behind. The camera was switched back to the 10 mm camera, and the abdomen was surveyed again. Hemostasis was checked and attended, and was excellent. The abdomen was copiously irrigated and suctioned free. Again hemostasis was checked and was excellent. All trochars were removed under direct visualization. The abdomen was desufflated. The fascia in the 11 mm port site Was copiously irrigated, and was closed with interrupted 0 Vicryl suture. The skin was closed with a running 4-0 Monocryl subcuticular stitch. Dermabond was applied. The patient tolerated the procedure without complication, and was transferred in stable condition to the PACU. All instrument, needle, and sponge counts were correct at the end of the case. my insurance sales assistant was necessary throughout the procedure for tissue retraction, possible camera operation, and closure of the wounds. I understand that section 1842(b)(7)(D) of the Social Security act generally prohibits Medicare physician fee schedule payment for the services of assistants at surgery in teaching hospitals when qualified residents are available to furnish such services. I certify that the services for which payment is claimed were medically necessary and that no qualified resident was available to perform the services. I further understand that these services are subject to postpayment review by the Medicare carrier. I attest to the content of the Intraoperative Record and any orders documented therein. Any exceptions are noted below.
--- NOTE | 2024-09-27 14:16 | Anesthesiology Progress Note ---
Date of Service September 27, 2024 Anesthesia Post Procedure Vital Signs Vital Signs: Temp Pulse Pulse Pulse Resp BP Pulse Ox 09/27/24 14:10 36.5 C 70 19 139/71 92 09/27/24 14:00 73 19 146/66 H 93 09/27/24 13:50 79 16 138/64 98 09/27/24 13:40 83 15 127/57 L 96 09/27/24 13:32 36.5 C 90 20 102/34 L 96 09/27/24 11:14 36.9 C 75 18 109/67 95 09/27/24 07:41 36.4 C L 66 18 103/66 95 09/27/24 07:15 67 09/27/24 03:33 36.7 C 83 20 114/70 95 09/26/24 23:48 36.9 C 75 20 110/70 96 09/26/24 21:49 65 09/26/24 19:50 36.6 C 87 20 110/72 96 09/26/24 19:09 36.6 C 68 18 106/71 95 09/26/24 16:00 36.6 C 68 18 106/71 95 O2 Del Method O2 Flow Rate 09/27/24 14:10 Room Air 0 09/27/24 14:00 Room Air 0 09/27/24 13:50 Room Air 0 09/27/24 13:40 Oxymask 4 09/27/24 13:32 Oxymask 8 09/27/24 11:14 Room Air 09/27/24 07:41 Room Air 09/27/24 07:15 09/27/24 03:33 Room Air 09/26/24 23:48 Room Air 09/26/24 21:49 09/26/24 19:50 Room Air 09/26/24 19:09 Room Air 09/26/24 16:00 Room Air Pain Intensity Abdomen: Pain Intensity: 3 Transfer of Care Handoff Completed per policy Notes Mental Status: alert / awake / arousable and participated in evaluation Patient Amnestic to Procedure: Yes Nausea / Vomiting: adequately controlled Pain: adequately controlled Airway Patency, RR, SpO2: stable & adequate BP & HR: stable & adequate Hydration State: stable & adequate Anesthetic Complications: no major complications apparent and Pt Satisfied with anesthetic care
[2024-09-27] MEDS ORDERED: oxyCODONE/ACETAMINOPHEN 5mg/325mg TAB PO PRN ×2 (14:33)
[2024-09-27] MEDS ORDERED: diphenhydrAMINE Capsule 25 MG CAP PO PRN (14:33)
[2024-09-28 03:51] VITALS: O2SAT 97
[2024-09-28] MEDS: KETOROLAC 30 MG/ML VIAL IV PRN (06:15)
[2024-09-28 07:58] LABS: Basophils # (auto) 0.02 K/uL (0.00-0.20); Basophils % (auto) 0.2 %; Eosinophils # (auto) 0.07 K/uL (0.00-0.50); Eosinophils % (auto) 0.6 %; Hematocrit (blood only) 40.1 % (42.0-52.0); Hemoglobin 14.2 g/dl (14.0-18.0); Immature Granulocytes # (auto) 0.06 K/uL (0.01-0.20); Immature Granulocytes % (auto) 0.5 %; Lymphocytes # (auto) 1.76 K/uL (1.20-3.40); Lymphocytes % (auto) 15.4 %; Mean Corpuscular Hemoglobin 31.5 pg (25.0-34.0); Mean Corpuscular Hgb Conc 35.4 g/dL (32.0-36.0); Mean Corpuscular Volume 88.9 fL (80.0-100.0); Mean Platelet Volume 10.9 fL (9.4-12.4); Neutrophils % (auto) 76.3 %; Platelet Count 171 K/uL (130-400); RDW Coefficient of Variation 11.6 % (11.5-14.5); RDW Standard Deviation 37.1 fL (36.4-46.3); Red Blood Count 4.51 M/uL (4.70-6.10); White Blood Count 11.41 K/ul (4.8-10.8)
[2024-09-28 08:03] VITALS: BP 116/78; PULSE 61; RESP 18; TEMP 98.2
[2024-09-28 08:44] LABS: Albumin Globulin Ratio 1.1 (0.9-2); Albumin Level 3.7 gm/dl (3.4-5.0); BUN Creatinine Ratio 15.1 (10-20); Bilirubin,Total 0.8 mg/dl (0.2-1.0); Calcium 8.9 mg/dl (8.6-10.3); Creatinine Clr Calc Pharmacy 113.9 ml/min; Globulin 3.3 gm/dl (2.5-4.0); Potassium 4.1 mmol/L (3.5-5.1)
--- NOTE | 2024-09-28 09:06 | Gastroenterology Progress Note ---
Date of Service September 28, 2024 Assessment & Plan (1) Acute calculous cholecystitis: Plan: 39 year old male admitted w/ acute calculous cholecystitis, GI asked to evaluate for potential ERCP. No apparent stone on imaging, CBD is non-dilated w/ Tbili 1.9. S/P CCY, symptoms improved, Tbili within normal range this AM. No current indication for ERCP. Trend LFTs. Recall GI as needed. I spent a total of 40 minutes on the date of service in review of patient's record, and previously obtained information in person and appropriate medical visit, discussion and education of plan, with patient and/or caregiver, placing orders for tests/referral/procedures as medically necessary and documentation of pertinent clinical information in patient's medical records for their visit today. Admission and Anticipated Discharge Date Admission Date: September 26, 2024 Subjective S/P CCY. Feeling well. Tolerating oral intake. Abd pain is resolved. No nausea/vomiting. Tbili improved. Review of Systems Review of Systems: All other findings negative except as noted in HPI. Physical Exam Constitutional: WD/WN, vitals as above Respiratory: normal respiratory effort, lungs clear to auscultation Cardiovascular: RRR, no murmur, no edema Gastrointestinal (Abdomen): normal bowel sounds, soft, nontender, no hepatosplenomegaly Skin: no rashes, warm and dry Results & Data Results & Data Vital Signs (Past 12 Hours) Vital Signs Temp Pulse Pulse Resp BP Pulse Ox O2 Del Method 09/28/24 07:55 98.2 F 61 18 116/78 97 Room Air 09/28/24 05:40 56 L 09/28/24 03:50 97.9 F 57 L 20 106/62 97 Room Air 09/28/24 01:18 62 09/28/24 00:14 98.1 F 60 18 104/65 94 Room Air Laboratory Results 09/28/24 Range/Units 07:09 WBC 11.41 H (4.8-10.8) K/ul RBC 4.51 L (4.70-6.10) M/uL Hgb 14.2 (14.0-18.0) g/dl Hct 40.1 L (42.0-52.0) % MCV 88.9 (80.0-100.0) fL MCH 31.5 (25.0-34.0) pg MCHC 35.4 (32.0-36.0) g/dL RDW Std Deviation 37.1 (36.4-46.3) fL RDW Coeff of Claudio 11.6 (11.5-14.5) % Plt Count 171 (130-400) K/uL MPV 10.9 (9.4-12.4) fL Immature Gran % (Auto) 0.5 % Neut % (Auto) 76.3 % Lymph % (Auto) 15.4 % [place] % (Auto) 7.0 % Eos % (Auto) 0.6 % Baso % (Auto) 0.2 % Neut # (Auto) 8.70 H (1.40-6.50) K/uL Lymph # (Auto) 1.76 (1.20-3.40) K/uL [place] # (Auto) 0.80 H (0.11-0.59) K/uL Eos # (Auto) 0.07 (0.00-0.50) K/uL Baso # (Auto) 0.02 (0.00-0.20) K/uL Immature Gran # (Auto) 0.06 (0.01-0.20) K/uL Sodium 138 (136-145) mmol/L Potassium 4.1 (3.5-5.1) mmol/L Chloride 101 (98-107) mmol/L Carbon Dioxide 34 H (21-32) mmol/L Anion Gap 3 (3-11) BUN 16 (6-23) mg/dl Creatinine 1.06 (0.6-1.4) mg/dl Est Cr Clr Drug Dosing 113.9 ml/min eGFR 91.55 BUN/Creatinine Ratio 15.1 (10-20) Glucose 91 (70-99(Fasting)) mg/dl Calcium 8.9 (8.6-10.3) mg/dl Total Bilirubin 0.8 D (0.2-1.0) mg/dl AST 37 (13-39) U/L ALT 75 H (7-52) U/L Alkaline Phosphatase 75 (34-104) U/L Total Protein 7.0 (6.0-8.3) gm/dl Albumin 3.7 (3.4-5.0) gm/dl Globulin 3.3 (2.5-4.0) gm/dl Albumin/Globulin Ratio 1.1 (0.9-2) PG Care Time/CCT Total # of Minutes Spent Total Time Spent with Patient: Total time spent is greater than 50% in coordination of care (as documented) at patient's floor/unit and/or counseling patient: Coding Level of Care Code 87033 SUB INP/OBS CARE 2MIN Diagnoses Acute calculous cholecystitis K80.00
--- NOTE | 2024-09-28 10:15 | Surgery Progress Note ---
Date of Service September 28, 2024 Assessment & Plan (1) Acute calculous cholecystitis: (2) Total bilirubin, elevated: Plan POD # 1 s/p laparoscopic cholecystectomy avss postop incisional soreness mild, controlled t. bili normalized leukocytosis stable Plan: Doing well from surgical standpoint for discharge discharge instructions reviewed rx for Percocet prn pain 2 week follow-up in surgery off return to work Thursday with limited duties, note given Dr. De La O has seen and examined pt, agrees with above. Admission and Anticipated Discharge Date Admission Date: September 26, 2024 Subjective feeling much better preop pain resolved, postop pain at incisions minimal more soreness no n,v tolerated diet ambulated hallway, urinating without difficulty passing gas no cp or sob Physical Exam Constitutional: WD/WN, vitals as above cooperative and comfortable; no a cute distress and not ill appearing Respiratory: normal respiratory effort; no respiratory distress and no labored breathing Gastrointestinal (Abdomen): Inspection/Auscultation: abdomen normal to inspection and + abdominal surgical incision (c/d/i with dermabond); abdomen not distended Percussion/Palpation: + abdomen tender (minimal at incision sites) and abdomen soft; no guarding, abdomen not rigid and abdomen not firm Skin: no rashes, warm and dry no jaundice Psychiatric: A+Ox3, euthymic affect Results & Data Vital Signs (Past 12 Hours) Vital Signs Temp Pulse Pulse Resp BP Pulse Ox O2 Del Method 09/28/24 07:55 36.8 C 61 18 116/78 97 Room Air 09/28/24 05:40 56 L 09/28/24 03:50 36.6 C 57 L 20 106/62 97 Room Air 09/28/24 01:18 62 09/28/24 00:14 36.7 C 60 18 104/65 94 Room Air Laboratory Results 09/28/24 Range/Units 07:09 WBC 11.41 H (4.8-10.8) K/ul RBC 4.51 L (4.70-6.10) M/uL Hgb 14.2 (14.0-18.0) g/dl Hct 40.1 L (42.0-52.0) % MCV 88.9 (80.0-100.0) fL MCH 31.5 (25.0-34.0) pg MCHC 35.4 (32.0-36.0) g/dL RDW Std Deviation 37.1 (36.4-46.3) fL RDW Coeff of Claudio 11.6 (11.5-14.5) % Plt Count 171 (130-400) K/uL MPV 10.9 (9.4-12.4) fL Immature Gran % (Auto) 0.5 % Neut % (Auto) 76.3 % Lymph % (Auto) 15.4 % [place] % (Auto) 7.0 % Eos % (Auto) 0.6 % Baso % (Auto) 0.2 % Neut # (Auto) 8.70 H (1.40-6.50) K/uL Lymph # (Auto) 1.76 (1.20-3.40) K/uL [place] # (Auto) 0.80 H (0.11-0.59) K/uL Eos # (Auto) 0.07 (0.00-0.50) K/uL Baso # (Auto) 0.02 (0.00-0.20) K/uL Immature Gran # (Auto) 0.06 (0.01-0.20) K/uL Sodium 138 (136-145) mmol/L Potassium 4.1 (3.5-5.1) mmol/L Chloride 101 (98-107) mmol/L Carbon Dioxide 34 H (21-32) mmol/L Anion Gap 3 (3-11) BUN 16 (6-23) mg/dl Creatinine 1.06 (0.6-1.4) mg/dl Est Cr Clr Drug Dosing 113.9 ml/min eGFR 91.55 BUN/Creatinine Ratio 15.1 (10-20) Glucose 91 (70-99(Fasting)) mg/dl Calcium 8.9 (8.6-10.3) mg/dl Total Bilirubin 0.8 D (0.2-1.0) mg/dl AST 37 (13-39) U/L ALT 75 H (7-52) U/L Alkaline Phosphatase 75 (34-104) U/L Total Protein 7.0 (6.0-8.3) gm/dl Albumin 3.7 (3.4-5.0) gm/dl Globulin 3.3 (2.5-4.0) gm/dl Albumin/Globulin Ratio 1.1 (0.9-2)
--- NOTE | 2024-09-28 11:08 | Discharge Summary ---
Date of Service September 28, 2024 Admission HPI Per Admitting Provider 39 y/o here for evaluation of RUQ abdominal pain. Patient seen in the ED yesterday for similar symptoms. He did sign out AMA at that time as he had social items that needed addressed prior to surgery. Returned as symptoms had worsened. Patient experiencing nausea, abdominal pain, and fevers. Started on Zosyn in the ED. Upon my interview patient's pain is controlled. Amenable to inpatient treatment. At this time. Does report signing [facility]. He would like to change this and be full code. Admission Exam Per Admitting Provider Gen: well appearing patient in NAD HEENT: AT NC MMM Resp: CTAB no wheezing no increased work of breathing CV: RRR no m/r/g clinically well perfused Abd: soft, tender RUQ, no peritoneal signs, +BS, non-distended MSK: no obvious deformities Skin: no rashes or bruising Neuro: alert and oriented Psych: appropriate mood and affect Principal Diagnosis S/P laparoscopic cholecystectomy Discharge Exam Constitutional: Well appearing, No acute distress HEENT: Atraumatic, Normocephalic, No conjunctival injection CVS: Looks well perfused. Respiratory: No increased work of breathing GI: Soft, Nondistended, tender RUQ MSK: No gross deformities noted Skin: Warm, Dry, No rashes Neuro: Alert, Oriented to TPP, No Focal deficit Psych: Mood and Affect congruent, Cooperative on exam Discharge Data Allergies Allergy/AdvReac Type Severity Reaction Status Date / Time Iodinated Contrast Media Allergy Severe THROAT Verified 09/27/24 11:23 SWELLING, HARD TO BREATHE Consultations 09/26/24 13:25 ED Decision to Admit Stat 09/26/24 20:18 Consult Gastroenterology Routine Procedures Performed Operation Date: 09/27/24 08:20 Actual Procedures p Laparoscopic Cholecystectomy(Not Applicable) - Shiva De La O MD Ordered Studies 09/26/24 13:31 MRI MRCP [MR MRCP] Stat Hospital Course (1) Acute calculous cholecystitis: (2) Total bilirubin, elevated: (3) Bipolar II disorder with or without full interepisode recovery: Plan 39 yo admitted with acute calculus cholecystitis. Endorses RUQ pain for few days, had to take care of stuffs at home previous day, so went back signing AMA, amenable to treatment at current hospital stay. Vitals stable, GI recommends no ERCP, Surgery recs Lap jaquelin. #Acute calculous cholecystitis S/P Lap cholecystectomy. - Uneventful post- op period. - Bilirubin improved to normal. - Augmentin for 3 days sent given his history. - F/U with PCP in 1 week. Total Time Total Time Spent Total Time Spent (In Minutes): See attending's attestation. Discharge Plan Discharge Items Patient Disposition: Home - Self-Care Reason For Visit: ABDOMINAL PAIN Discharge Diagnosis: S/P lap cholecystectomy for Acute Cholecystitis Activity: Per Instructions section Lifting: Gradually increase as tolerated Non-emergency contact: Primary Care Provider and Surgeon Call non-emergency contact if: your symptoms worsen, your pain is not controlled, your pain is worsening and your temperature is above 101.5 Follow-up/Referrals: Miriam South PA-C [Physician Lift Team Technician] - [facility] [Primary Care Provider] - Diet: Low Fat Addtl Attending Provider Instructions: You were admitted to the hospital for acute cholecystitis. You were treated with surgical procedure called Laparoscopic cholecystectomy. You did fine post surgery, hence we are discharging you. Your bilirubin numbers came down post surgery and liver functions are also normal. This is very jesse ssuring. A discharge summary will be sent to your primary care physician to ensure continuity of care. Please bring this discharge summary with you to your next office appointment so that your provider can review it at that time. Medications: Your medication list has been reviewed and reconciled upon discharge to ensure accuracy and continuity of care. An updated list of all your medications is included with your hospital discharge paperwork. Please review this list closely and make note of any changes to your medications. 1. Antibiotics Augmentin is sent to your pharmacy for 3 days,please follow instruction. 2. You can take Tylenol or Ibuprofen for your pain as needed. Follow up appointments: - Make f.u appointment as per surgery team, - Make a follow up appointment with your PCP within the next week. It is very important that you follow up with them shortly after discharge from the hospital. - Keep all of your follow up appointments as already scheduled. If you cannot make an appointment, notify your provider. CONTACT YOUR PRIMARY CARE PROVIDER if you experience any of the following: - Difficulty following your treatment plan - Difficulty taking any of your medications CALL 911 OR GO TO THE EMERGENCY DEPARTMENT if you experience any of the following: - Sudden, severe abdominal pain or nausea/vomiting - Severe chest pain or chest pain that radiates to your jaw or arm - Sudden, severe shortness of breath or difficulty breathing Addtl Adviser Sales Provider Instructions: Post-Surgical ~Discharge Instructions Activity Recommendations: - lifting limitation: (20 pounds for 2-3 weeks), - exercise/sex/sports limit: (nonstrenuous for 2 weeks), - driving or machine use limit: (none for at least 3 days or until pain resolved, and no longer taking any narcotic pain medication) - Shower/bathe limit: (may shower beginning today, no submerging incisions underwater for 2 weeks) Diet: - Resume previous diet SPECIAL CARE INSTRUCTIONS: - May shower. Let water run over area and pat dry. - Leave surgical glue on incisions. This will fall off on its own. - Call the surgeon's office with any questions or concerns - - (ex. temperature higher than 101 degrees F, excessive bleeding or pain). MEDICATIONS: - Resume previous medications unless instructed otherwise by your surgeon. - May alternate extra strength Tylenol and Ibuprofen as needed for mild to moderate pain -650 mg Tylenol every 6 hours as needed - Ibuprofen 600 mg every 6 hours as needed take with food - Percocet 1 every 6 hours as needed for moderate to severe pain - May take stool softener (Colace) daily to twice a day while taking narcotic pain medication. Drink plenty of water daily. FOLLOW UP VISIT: - If not already scheduled, please call the office to schedule a two week follow-up appointment. Office number Pending Studies at Discharge: No Stand-Alone Forms: [facility], Work/School Release, Smoking Cessation Medications and DC Order Prescriptions: New oxycodone-acetaminophen 5-325 mg tablet 1 tab PO Q6H PRN (Reason: pain) Qty: 7 0RF amoxicillin-pot clavulanate [Augmentin] 500-125 mg tablet 1 tab PO BID 3 Days Qty: 6 0RF Discharge Orders: Discharge Order (Routine); Ordered 09/28/24 Ordered By: Divya Stafford/Other Patient Handouts: Abdominal Pain, After Gallbladder Surgery, Having Laparoscopic Cholecystectomy, Cholecystectomy Dc Admission Data Admit Date/Time: 09/26/24 14:29 Attending Provider: [place] Lorenz Admit Provider: Olga Simeon Primary Care Provider: [facility] Other Providers: [facility]; Washington Lorenz; Chano Gleason Jr Other Interventions: Discharge Summary Assessment (RN) Last Done: 09/28/24 11:10 Supervising Physician Co-Signing Physician Notes ATTESTATION I also saw the patient and confirmed patricio portions of the history and exam. I agree with the impression and plan in the resident documentation, and as summarized below. No issues overnight. Tolerating diet without problem. EXAM VSS, afebrile. CV RRR Lungs with non labored respirations ABD soft and non tender Incision c-d-i, no erythema DATA Labs WBC 11.41 Bilirubin has normalized IMPRESSION & PLAN Acute cholecystitis, S/P cholecystectomy POD #1 Leukocytosis, mild OK for discharge Augmentin 875 BID x 3 days F/u with surgery office Additional per resident documentation Resident Activity Tracking Resident Involvement: Resident Care Provided Care Provided: Adult Hospital Medicine
== END 2024-09-28 11:49 | disposition home or self-care (01) | DRG 409 ==
LOC: ED 10:54 → 2N 14:29